=== PATIENT | male | born 1940 | race Caucasian/White ===

== ENCOUNTER → 2016-08-06 | Outpatient (CLI) | payer MEDICARE, OTHER ==
[~2016-08-06] MED LIST: /PANT40TA OR; /PRAV20TA OR; /SUCR1TA OR; ALLO300T OR; ASPI81TA3 OR; BENA40TA OR; COLA100C2 OR; CORE12.5 OR; FISH1000 OR; GLIP5TAB2 OR; INDO50CA2 OR; KLOR10TA OR; LASI80TA OR
[2016-08-06 10:28] LABS: ALBUMIN 3.2 GM/DL (3.2-5.2); ALBUMIN/GLOBULIN RATIO 0.91 (1.00-1.93); BILIRUBIN,TOTAL 0.5 MG/DL (0.2-1.0); CALCIUM LEVEL 8.7 MG/DL (8.8-10.2); CREATININE FOR GFR 1.63 MG/DL (0.70-1.30); GLOMERULAR FILTRATION RATE 44.1 (>42); POTASSIUM SERUM 3.8 MEQ/L (3.5-5.1); TOTAL PROTEIN 6.7 GM/DL (6.4-8.2)
== END ==
LOC: M LAB 09:13
PROVIDERS: ATTEND Nurse Practitioner Family
DX: E13.9 Other specified diabetes mellitus without complications (principal); I50.9 Heart failure, unspecified; E78.2 Mixed hyperlipidemia

== ENCOUNTER → 2016-11-04 | Outpatient (REF) | payer MEDICARE, OTHER ==
[2016-11-04 13:03] LABS: ALBUMIN 3.3 GM/DL (3.2-5.2); ALBUMIN/GLOBULIN RATIO 1.06 (1.00-1.93); BILIRUBIN,TOTAL 0.5 MG/DL (0.2-1.0); CALCIUM LEVEL 8.5 MG/DL (8.8-10.2); CREATININE FOR GFR 1.41 MG/DL (0.70-1.30); PERCENT SATURATION 18.6 % (19.7-37.4); POTASSIUM SERUM 3.9 MEQ/L (3.5-5.1); TOTAL PROTEIN 6.4 GM/DL (6.4-8.2)
[2016-11-04 13:04] LABS: BASO # 0.1 K/mm3 (0.0-0.2); BASO % 0.9 % (0.0-1.0); EOS # 0.2 K/mm3 (0.0-0.50); EOS % 3.3 % (0.0-3.0); LARGE UNSTAINED CELL # 0.1 K/mm3 (0.0-0.4); LARGE UNSTAINED CELL % 1.8 % (0.0-4.0); LYMPH # 1.4 K/mm3 (1.5-4.5); LYMPH % 19.1 % (24.0-44.0); MEAN CORPUSCULAR HEMOGLOBIN 28.8 pg (27.0-33.0); MEAN CORPUSCULAR HGB CONC 31.5 g/dl (32.0-36.5); MEAN CORPUSCULAR VOLUME 91.5 fl (80.0-96.0); MONO # 0.3 K/mm3 (0.0-0.8); NEUTROPHILS # 5.3 K/mm3 (1.8-7.7); NEUTROPHILS % 70.9 % (36.0-66.0); PLATELET COUNT, AUTOMATED 269 k/mm3 (150-450); RED CELL DISTRIBUTION WIDTH 17.6 % (11.5-14.5); WHITE BLOOD COUNT 7.5 K/mm3 (4.0-10.0)
== END ==
LOC: M SFHCPLAZ 09:16
PROVIDERS: ATTEND Nurse Practitioner Family
DX: Z00.00 Encounter for general adult medical examination without abnormal findings (principal); E13.9 Other specified diabetes mellitus without complications

== ENCOUNTER → 2016-11-09 | Outpatient (REF) | payer MEDICARE, OTHER | LOC: M SFHCPLAZ 10:44 | PROVIDERS: ATTEND Nurse Practitioner Family | DX: D64.9 Anemia, unspecified (principal); Z53.8 Procedure and treatment not carried out for other reasons ==

== ENCOUNTER → 2017-02-08 | Outpatient (CLI) | payer MEDICARE, OTHER ==
[2017-02-08 13:27] LABS: ALBUMIN 3.3 GM/DL (3.2-5.2); ALBUMIN/GLOBULIN RATIO 1.03 (1.00-1.93); BILIRUBIN,TOTAL 0.4 MG/DL (0.2-1.0); CALCIUM LEVEL 8.7 MG/DL (8.8-10.2); CREATININE FOR GFR 1.58 MG/DL (0.70-1.30); GLOMERULAR FILTRATION RATE 45.6 (>42); PERCENT SATURATION 14.4 % (19.7-37.4); POTASSIUM SERUM 3.9 MEQ/L (3.5-5.1); TOTAL PROTEIN 6.5 GM/DL (6.4-8.2)
[2017-02-08 13:41] LABS: BASO # 0.1 K/mm3 (0.0-0.2); BASO % 0.9 % (0.0-1.0); EOS # 0.2 K/mm3 (0.0-0.50); EOS % 2.3 % (0.0-3.0); LARGE UNSTAINED CELL # 0.1 K/mm3 (0.0-0.4); LARGE UNSTAINED CELL % 1.3 % (0.0-4.0); LYMPH # 1.7 K/mm3 (1.5-4.5); LYMPH % 19.1 % (24.0-44.0); MEAN CORPUSCULAR HEMOGLOBIN 29.8 pg (27.0-33.0); MEAN CORPUSCULAR VOLUME 90.1 fl (80.0-96.0); MONO # 0.4 K/mm3 (0.0-0.8); MONO % 4.2 % (0.0-5.0); NEUTROPHILS # 6.1 K/mm3 (1.8-7.7); NEUTROPHILS % 72.2 % (36.0-66.0); PLATELET COUNT, AUTOMATED 273 k/mm3 (150-450); RED CELL DISTRIBUTION WIDTH 17.8 % (11.5-14.5); WHITE BLOOD COUNT 8.5 K/mm3 (4.0-10.0)
== END ==
LOC: M WUC 08:40
PROVIDERS: ATTEND Nurse Practitioner Family
DX: D64.9 Anemia, unspecified (principal); I10 Essential (primary) hypertension; Z12.5 Encounter for screening for malignant neoplasm of prostate; E11.9 Type 2 diabetes mellitus without complications
CPT/HCPCS: 36415; 80053; 83036; 83550; 85025; G0103

== ENCOUNTER → 2017-05-09 | Outpatient (CLI) | payer MEDICARE, OTHER ==
[2017-05-09 13:11] LABS: BASO # 0.1 10^3/uL (0.0-0.2); BASO % 0.8 % (0.0-1.0); EOS # 0.2 10^3/uL (0.0-0.50); EOS % 1.9 % (0.0-3.0); IMMATURE GRANULOCYTE % 0.5 % (0-0); LYMPH # 1.7 10^3/uL (1.5-4.5); LYMPH % 19.3 % (24.0-44.0); MEAN CORPUSCULAR HEMOGLOBIN 29.6 pg (27.0-33.0); MEAN CORPUSCULAR HGB CONC 32.4 g/dl (32.0-36.5); MEAN CORPUSCULAR VOLUME 91.2 fl (80.0-96.0); MONO # 0.5 10^3/uL (0.0-0.8); MONO % 5.1 % (0.0-5.0); NEUTROPHILS # 6.4 10^3/uL (1.8-7.7); NEUTROPHILS % 72.4 % (36.0-66.0); PLATELET COUNT, AUTOMATED 286 10^3/uL (150-450); RED CELL DISTRIBUTION WIDTH 17.5 % (11.5-14.5); WHITE BLOOD COUNT 8.8 10^3/uL (4.0-10.0)
[2017-05-09 13:23] LABS: ALBUMIN 3.4 GM/DL (3.2-5.2); ALBUMIN/GLOBULIN RATIO 0.89 (1.00-1.93); BILIRUBIN,TOTAL 0.5 MG/DL (0.2-1.0); CALCIUM LEVEL 8.8 MG/DL (8.8-10.2); CREATININE FOR GFR 1.48 MG/DL (0.70-1.30); GLOMERULAR FILTRATION RATE 49.2 (>42); POTASSIUM SERUM 4.2 MEQ/L (3.5-5.1); TOTAL PROTEIN 7.2 GM/DL (6.4-8.2)
== END ==
LOC: M WUC 09:38
PROVIDERS: ATTEND Nurse Practitioner Family
DX: N18.3 Chronic kidney disease, stage 3 (moderate) (principal); E11.9 Type 2 diabetes mellitus without complications

== ENCOUNTER → 2017-07-08 | Outpatient (CLI) | payer MEDICARE, OTHER ==
[2017-07-08 14:03] LABS: ALBUMIN 3.4 GM/DL (3.2-5.2); BILIRUBIN,TOTAL 0.5 MG/DL (0.2-1.0); CALCIUM LEVEL 8.6 MG/DL (8.8-10.2); CREATININE FOR GFR 1.47 MG/DL (0.70-1.30); GLOMERULAR FILTRATION RATE 49.6 (>42); POTASSIUM SERUM 3.8 MEQ/L (3.5-5.1); TOTAL PROTEIN 6.8 GM/DL (6.4-8.2)
== END ==
LOC: M WUC 09:41
PROVIDERS: ATTEND Nurse Practitioner Family
DX: E78.2 Mixed hyperlipidemia (principal)

== ENCOUNTER → 2017-10-17 | Outpatient (REF) | payer MEDICARE, OTHER ==
[2017-10-17 13:57] LABS: ANION GAP 9 MEQ/L (8-16); BLOOD UREA NITROGEN 14 MG/DL (7-18); CALCIUM LEVEL 8.4 MG/DL (8.8-10.2); CARBON DIOXIDE LEVEL 30 MEQ/L (21-32); CHLORIDE LEVEL 101 MEQ/L (98-107); CREATININE FOR GFR 1.55 MG/DL (0.70-1.30); GLOMERULAR FILTRATION RATE 46.5 (>42); GLUCOSE, FASTING 127 MG/DL (70-100); SODIUM LEVEL 140 MEQ/L (136-145)
[2017-10-17 15:00] LABS: ESTIMATED AVERAGE GLUCOSE 148 MG/DL (60-110); HEMOGLOBIN A1c 6.8 %
[2017-10-17 16:38] LABS: MAU/CREAT RATIO 13.2 MCG/MG (0.0-30.0)
== END ==
LOC: M SFHCPLAZ 11:02
DX: E13.9 Other specified diabetes mellitus without complications (principal); I10 Essential (primary) hypertension
CPT/HCPCS: 83036

== ENCOUNTER → 2018-01-27 | Outpatient (CLI) | payer MEDICARE, OTHER ==
[2018-01-27 12:00] LABS: ESTIMATED AVERAGE GLUCOSE 140 MG/DL (60-110); HEMOGLOBIN A1c 6.5 %
[2018-01-27 12:07] LABS: ALBUMIN 3.3 GM/DL (3.2-5.2); ALBUMIN/GLOBULIN RATIO 0.92 (1.00-1.93); ALKALINE PHOSPHATASE 79 U/L (45-117); ALT/SGPT 19 U/L (12-78); ANION GAP 7 MEQ/L (8-16); AST/SGOT 20 U/L (7-37); BILIRUBIN,TOTAL 0.6 MG/DL (0.2-1.0); BLOOD UREA NITROGEN 15 MG/DL (7-18); CALCIUM LEVEL 8.2 MG/DL (8.8-10.2); CARBON DIOXIDE LEVEL 30 MEQ/L (21-32); CHLORIDE LEVEL 102 MEQ/L (98-107); CREATININE FOR GFR 1.61 MG/DL (0.70-1.30); GLOMERULAR FILTRATION RATE 44.5 (>42); GLUCOSE, FASTING 134 MG/DL (70-100); POTASSIUM SERUM 4.4 MEQ/L (3.5-5.1); SODIUM LEVEL 139 MEQ/L (136-145); TOTAL PROTEIN 6.9 GM/DL (6.4-8.2)
== END ==
LOC: M WUC 09:05
DX: I12.9 Hypertensive chronic kidney disease with stage 1 through stage 4 chronic kidney disease, or unspecified chronic kidney disease (principal); N18.3 Chronic kidney disease, stage 3 (moderate); E13.9 Other specified diabetes mellitus without complications
CPT/HCPCS: 80053

== ENCOUNTER → 2018-04-29 | Outpatient (CLI) | payer MEDICARE, OTHER ==
[2018-04-29 19:52] LABS: ALBUMIN 3.8 GM/DL (3.2-5.2); ALBUMIN/GLOBULIN RATIO 1.06 (1.00-1.93); ALKALINE PHOSPHATASE 95 U/L (45-117); ALT/SGPT 17 U/L (12-78); ANION GAP 9 MEQ/L (8-16); AST/SGOT 16 U/L (7-37); BILIRUBIN,TOTAL 0.8 MG/DL (0.2-1.0); BLOOD UREA NITROGEN 21 MG/DL (7-18); CALCIUM LEVEL 9.3 MG/DL (8.8-10.2); CARBON DIOXIDE LEVEL 32 MEQ/L (21-32); CHLORIDE LEVEL 98 MEQ/L (98-107); CHOLESTEROL LEVEL 232 MG/DL (<200); CHOLESTEROL RISK RATIO 5.043 (<5); CREATININE FOR GFR 1.93 MG/DL (0.70-1.30); GLOMERULAR FILTRATION RATE 36.1 (>42); GLUCOSE, FASTING 150 MG/DL (70-100); HDL CHOLESTEROL 46 MG/DL (>40); LDL CHOLESTEROL 131 MG/DL (<100); NON-HDL-C 186 MG/DL; POTASSIUM SERUM 4.4 MEQ/L (3.5-5.1); SODIUM LEVEL 139 MEQ/L (136-145); TOTAL PROTEIN 7.4 GM/DL (6.4-8.2); TRIGLYCERIDES LEVEL 275 MG/DL (<150)
[2018-04-29 20:56] LABS: ESTIMATED AVERAGE GLUCOSE 151 MG/DL (60-110); HEMOGLOBIN A1c 6.9 %
== END ==
LOC: M WUC 09:31
DX: I13.0 Hypertensive heart and chronic kidney disease with heart failure and stage 1 through stage 4 chronic kidney disease, or unspecified chronic kidney disease (principal); E13.9 Other specified diabetes mellitus without complications; E78.2 Mixed hyperlipidemia
CPT/HCPCS: 80053

== ENCOUNTER → 2018-05-04 | Outpatient (REF) | payer MEDICARE, OTHER ==
[2018-05-04 20:41] LABS: ANION GAP 6 MEQ/L (8-16); BLOOD UREA NITROGEN 16 MG/DL (7-18); CALCIUM LEVEL 8.4 MG/DL (8.8-10.2); CARBON DIOXIDE LEVEL 32 MEQ/L (21-32); CHLORIDE LEVEL 100 MEQ/L (98-107); CREATININE FOR GFR 1.92 MG/DL (0.70-1.30); GLOMERULAR FILTRATION RATE 36.3 (>42); GLUCOSE, FASTING 134 MG/DL (70-100); POTASSIUM SERUM 4.6 MEQ/L (3.5-5.1); SODIUM LEVEL 138 MEQ/L (136-145)
[2018-05-04 20:45] LABS: CREATININE, URINE 81.5 MG/DL; MALB URINE SIEMENS 11.6 MG/L
[2018-05-04 20:53] LABS: MAU/CREAT RATIO 14.2 MCG/MG (0.0-30.0)
== END ==
LOC: M SFHCADAM 11:31
DX: N18.3 Chronic kidney disease, stage 3 (moderate) (principal); Z23 Encounter for immunization
CPT/HCPCS: 82043

== ENCOUNTER → 2018-06-07 | Outpatient (CLI) | payer MEDICARE, OTHER | LOC: M RAD 10:21 | DX: N18.3 Chronic kidney disease, stage 3 (moderate) (principal); I12.9 Hypertensive chronic kidney disease with stage 1 through stage 4 chronic kidney disease, or unspecified chronic kidney disease; E11.22 Type 2 diabetes mellitus with diabetic chronic kidney disease; K80.00 Calculus of gallbladder with acute cholecystitis without obstruction; N17.9 Acute kidney failure, unspecified | CPT/HCPCS: 76775 ==

== ENCOUNTER → 2018-08-03 | Outpatient (CLI) | payer MEDICARE ==
[2018-08-03 12:11] LABS: ALBUMIN 3.3 GM/DL (3.2-5.2); BILIRUBIN,TOTAL 0.7 MG/DL (0.2-1.0); CALCIUM LEVEL 8.6 MG/DL (8.8-10.2); CREATININE FOR GFR 1.8 MG/DL (0.70-1.30); GLOMERULAR FILTRATION RATE 39.1 (>42); POTASSIUM SERUM 4.3 MEQ/L (3.5-5.1); TOTAL PROTEIN 6.8 GM/DL (6.4-8.2)
[2018-08-03 12:50] LABS: HEMOGLOBIN A1c 7.3 %
== END ==
LOC: M WUC 10:03
PROVIDERS: ATTEND Nurse Practitioner Family
DX: I13.0 Hypertensive heart and chronic kidney disease with heart failure and stage 1 through stage 4 chronic kidney disease, or unspecified chronic kidney disease (principal); N18.3 Chronic kidney disease, stage 3 (moderate); E78.2 Mixed hyperlipidemia; E13.9 Other specified diabetes mellitus without complications; I50.9 Heart failure, unspecified

== ENCOUNTER → 2018-11-01 | Outpatient (REF) | payer MEDICARE ==
[~2018-11-01] MED LIST changes: -/PANT40TA OR; -/PRAV20TA OR; -/SUCR1TA OR; +PRAV1TAB39 OR; +PROT1TAB2 OR; +SUCR1TAB56 OR
[2018-11-01 16:45] LABS: HEMOGLOBIN A1c 7.4 %
== END ==
LOC: M SFHCPLAZ 14:49
PROVIDERS: ATTEND Nurse Practitioner Family
DX: E13.9 Other specified diabetes mellitus without complications (principal)
CPT/HCPCS: 36415; 83036; G0463

== ENCOUNTER → 2019-02-01 | Outpatient (REF) | payer MEDICARE ==
[2019-02-01 12:49] LABS: ALBUMIN 3.5 GM/DL (3.2-5.2); BILIRUBIN,TOTAL 0.7 MG/DL (0.2-1.0); CALCIUM LEVEL 8.8 MG/DL (8.8-10.2); CREATININE FOR GFR 1.92 MG/DL (0.70-1.30); GLOMERULAR FILTRATION RATE 36.2 (>42); POTASSIUM SERUM 4.4 MEQ/L (3.5-5.1); TOTAL PROTEIN 7.1 GM/DL (6.4-8.2)
[2019-02-01 12:58] LABS: HEMOGLOBIN A1c 7.4 %
== END ==
LOC: M SFHCPLAZ 10:27
PROVIDERS: ATTEND Nurse Practitioner Family
DX: I13.0 Hypertensive heart and chronic kidney disease with heart failure and stage 1 through stage 4 chronic kidney disease, or unspecified chronic kidney disease (principal); E78.2 Mixed hyperlipidemia; E13.9 Other specified diabetes mellitus without complications
CPT/HCPCS: 36415; 80053; 83036; G0463

== ENCOUNTER → 2019-05-23 | Outpatient (REF) | payer MEDICARE ==
[2019-05-23 12:51] LABS: HEMATOCRIT 39.7 % (42.0-52.0); HEMOGLOBIN 12.6 g/dl (13.5-17.5); MEAN CORPUSCULAR HEMOGLOBIN 30.5 pg (27.0-33.0); MEAN CORPUSCULAR HGB CONC 31.7 g/dl (32.0-36.5); MEAN CORPUSCULAR VOLUME 96.1 fl (80.0-96.0); PLATELET COUNT, AUTOMATED 227 10^3/uL (150-450); RED BLOOD COUNT 4.13 10^6/uL (4.30-6.10); WHITE BLOOD COUNT 8.8 10^3/uL (4.0-10.0)
[2019-05-23 13:00] LABS: ALBUMIN 3.4 GM/DL (3.2-5.2); BILIRUBIN,TOTAL 0.4 MG/DL (0.2-1.0); CHOLESTEROL RISK RATIO 3.78 (<5); CREATININE FOR GFR 1.75 MG/DL (0.70-1.30); GLOMERULAR FILTRATION RATE 40.3 (>42); POTASSIUM SERUM 4.3 MEQ/L (3.5-5.1); TOTAL PROTEIN 6.8 GM/DL (6.4-8.2)
[2019-05-23 13:18] LABS: HEMOGLOBIN A1c 7.3 %
== END ==
LOC: M SFHCADAM 08:49
PROVIDERS: ATTEND Family Medicine
DX: I13.0 Hypertensive heart and chronic kidney disease with heart failure and stage 1 through stage 4 chronic kidney disease, or unspecified chronic kidney disease (principal); E78.2 Mixed hyperlipidemia; E13.9 Other specified diabetes mellitus without complications; N18.3 Chronic kidney disease, stage 3 (moderate); I65.22 Occlusion and stenosis of left carotid artery
CPT/HCPCS: 80053; 80061; 83036; 85027; 90682; G0008; G0463

== ENCOUNTER → 2019-07-03 | Outpatient (REF) | payer MEDICARE ==
[2019-07-03 18:10] LABS: HEMATOCRIT 38.2 % (42.0-52.0); HEMOGLOBIN 12.4 g/dl (13.5-17.5); MEAN CORPUSCULAR HEMOGLOBIN 30.8 pg (27.0-33.0); MEAN CORPUSCULAR HGB CONC 32.5 g/dl (32.0-36.5); PLATELET COUNT, AUTOMATED 234 10^3/uL (150-450); RED BLOOD COUNT 4.02 10^6/uL (4.30-6.10); WHITE BLOOD COUNT 8.3 10^3/uL (4.0-10.0)
[2019-07-03 18:32] LABS: INR 1.09; PROTHROMBIN TIME 13.8 SECONDS (11.8-14.0)
== END ==
LOC: M SFHCPLAZ 14:13
PROVIDERS: ATTEND Physician Assistant
DX: R58 Hemorrhage, not elsewhere classified (principal)

== ENCOUNTER → 2019-11-21 | Outpatient (REF) | payer MEDICARE ==
[2019-11-21 13:20] LABS: HEMATOCRIT 42.8 % (42.0-52.0); HEMOGLOBIN 13.8 g/dl (13.5-17.5); MEAN CORPUSCULAR HEMOGLOBIN 29.7 pg (27.0-33.0); MEAN CORPUSCULAR HGB CONC 32.2 g/dl (32.0-36.5); MEAN CORPUSCULAR VOLUME 92.2 fl (80.0-96.0); PLATELET COUNT, AUTOMATED 243 10^3/uL (150-450); RED BLOOD COUNT 4.64 10^6/uL (4.30-6.10); WHITE BLOOD COUNT 8.9 10^3/uL (4.0-10.0)
[2019-11-21 13:44] LABS: CALCIUM LEVEL 8.6 MG/DL (8.8-10.2); CREATININE FOR GFR 1.65 MG/DL (0.70-1.30); GLOMERULAR FILTRATION RATE 43.1 (>42); HEMOGLOBIN A1c 7.3 %; POTASSIUM SERUM 4.5 MEQ/L (3.5-5.1)
== END ==
LOC: M SFHCADAM 11:07
PROVIDERS: ATTEND Family Medicine
DX: E13.9 Other specified diabetes mellitus without complications (principal); K92.1 Melena
CPT/HCPCS: 80048; 83036; 85027; G0463

== ENCOUNTER → 2020-05-06 | Outpatient (REF) | payer MEDICARE ==
[2020-05-06 12:58] LABS: HEMOGLOBIN 13.4 g/dl (13.5-17.5); MEAN CORPUSCULAR HEMOGLOBIN 30.7 pg (27.0-33.0); MEAN CORPUSCULAR HGB CONC 32.7 g/dl (32.0-36.5); MEAN CORPUSCULAR VOLUME 93.8 fl (80.0-96.0); PLATELET COUNT, AUTOMATED 243 10^3/uL (150-450); RED BLOOD COUNT 4.37 10^6/uL (4.30-6.10); WHITE BLOOD COUNT 9.1 10^3/uL (4.0-10.0)
[2020-05-06 13:38] LABS: ALBUMIN 3.3 GM/DL (3.2-5.2); BILIRUBIN,TOTAL 0.8 MG/DL (0.2-1.0); CALCIUM LEVEL 8.9 MG/DL (8.8-10.2); CHOLESTEROL RISK RATIO 3.428 (<5); CREATININE FOR GFR 1.55 MG/DL (0.70-1.30); GLOMERULAR FILTRATION RATE 46.3 (>42); POTASSIUM SERUM 4.1 MEQ/L (3.5-5.1)
[2020-05-06 14:03] LABS: HEMOGLOBIN A1c 6.7 %
== END ==
LOC: M SFHCADAM 09:11
PROVIDERS: ATTEND Family Medicine
DX: E78.2 Mixed hyperlipidemia (principal); E13.9 Other specified diabetes mellitus without complications; Z23 Encounter for immunization
CPT/HCPCS: 80053; 80061; 83036; 85027; 90682; G0008; G0463

== ENCOUNTER 2020-09-01 09:08 | Day surgery (SDC) | payer MEDICARE ==
[~2020-09-01] VITALS: Ht 166.4 cm; Wt 93.6 kg
[2020-09-01] MEDS ORDERED: NS 500 ML IV ONE (10:00)
[2020-09-01 10:29] LABS: BASO # 0.1 10^3/uL (0.0-0.2); BASO % 0.6 % (0.0-1.0); EOS # 0.2 10^3/uL (0.0-0.5); EOS % 2.4 % (0.0-3.0); HEMATOCRIT 40.5 % (42.0-52.0); HEMOGLOBIN 13.2 g/dl (13.5-17.5); LYMPH # 1.5 10^3/uL (1.5-5.0); LYMPH % 16.5 % (24.0-44.0); MEAN CORPUSCULAR HGB CONC 32.6 g/dl (32.0-36.5); MONO # 0.6 10^3/uL (0.0-0.8); MONO % 6.8 % (0.0-5.0); NEUTROPHILS # 6.8 10^3/uL (1.5-8.5); NEUTROPHILS % 72.9 % (36.0-66.0); PLATELET COUNT, AUTOMATED 215 10^3/uL (150-450); RED BLOOD COUNT 4.55 10^6/uL (4.30-6.10); WHITE BLOOD COUNT 9.3 10^3/uL (4.0-10.0)
[2020-09-01 10:54] LABS: CALCIUM LEVEL 8.7 MG/DL (8.8-10.2); CREATININE FOR GFR 1.84 MG/DL (0.70-1.30); GLOMERULAR FILTRATION RATE 37.9 (>35); POTASSIUM SERUM 3.8 MEQ/L (3.5-5.1)
[2020-09-01] MEDS ORDERED: PRAV40TA2 PO (11:22)
[2020-09-01] MEDS ORDERED: ASPI-161 PO (11:22)
[2020-09-01] MEDS ORDERED: EZET10TA21 PO (11:22)
[2020-09-01] MEDS ORDERED: CALC1CAP31 PO (11:22)
[2020-09-01] MEDS ORDERED: PANT40TA29 PO (11:22)
[2020-09-01] MEDS ORDERED: DOCU100C16 PO (11:22)
[2020-09-01] MEDS ORDERED: OMEG10002 PO (11:22)
[2020-09-01] MEDS ORDERED: TAMS1CAP17 PO (11:22)
[2020-09-01] MEDS ORDERED: BENA5TA PO (11:22)
[2020-09-01] MEDS ORDERED: FERR1TAB8 PO (11:22)
[2020-09-01] MEDS ORDERED: D31000TA2 PO (11:22)
[2020-09-01] MEDS ORDERED: GLIP5TAB8 PO (11:22)
[2020-09-01] MEDS ORDERED: CARV6.25 PO (11:22)
[2020-09-01] MEDS ORDERED: FURO80TA2 PO ×2 (11:22)
[2020-09-01] MEDS ORDERED: POTA10TA17 PO (11:22)
[2020-09-01 11:26] LABS: RSV AMPLIFICATION NEGATIVE (NEGATIVE)
[2020-09-01] MEDS ORDERED: SUCCINYLCHOLINE 100 MG/5 ML SYRINGE (J0330) As Ordered ONE (12:55)
[2020-09-01] MEDS ORDERED: ROCURONIUM BROMIDE 50 MG/5 ML VIAL As Ordered ONE (12:55)
[2020-09-01] MEDS ORDERED: ONDANSETRON 4MG/2ML VIAL As Ordered ONE (12:55)
[2020-09-01] MEDS ORDERED: fentaNYL 100 MCG/2 ML INJECTION (J3010) As Ordered ONE (12:55)
[2020-09-01] MEDS ORDERED: propofoL 200 MG/20 ML VIAL As Ordered ONE (12:55)
[2020-09-01] MEDS ORDERED: METOCLOPRAMIDE INJ 10MG/2ML VIAL (J2765 PER 1) As Ordered ONE (12:55)
[2020-09-01] MEDS ORDERED: LIDOCAINE 2% INJ 100 MG/5 ML SYRINGE As Ordered ONE (12:55)
[2020-09-01] MEDS ORDERED: LIDOCAINE 2% 100MG/5ML SDV (FOR ANES.) As Ordered ONE (13:00)
--- NOTE | 2020-09-01 14:35 | ROOR ---
Patient Name: Jose R Ritchie Procedure Date: 09/01/2020 12:50 PM Date of : 1940 Age: 80 Room: Main OR Gender: Male Note Status: Finalized Procedure: Upper GI endoscopy Indications: Removal of foreign body in the esophagus Providers: Ajay Hickman MD Referring MD: Elliot Zuniga Md Requesting Provider: Medicines: Monitored Anesthesia Care Complications: No immediate complications. Procedure: Pre-Anesthesia Assessment: - Prior to the procedure, a History and Physical was performed, and patient medications and allergies were reviewed. The patient is competent. The risks and benefits of the procedure and the sedation options and risks were discussed with the patient. All questions were answered and informed consent was obtained. Patient identification and proposed procedure were verified by the physician, the nurse and the anesthesiologist in the procedure room. Mental Status Examination: alert and oriented. Airway Examination: normal oropharyngeal airway and neck mobility. Respiratory Examination: clear to auscultation. CV Examination: normal. Prophylactic Antibiotics: The patient does not require prophylactic antibiotics. Prior Anticoagulants: The patient has taken no previous anticoagulant or antiplatelet agents. ASA Grade Assessment: II - A patient with mild systemic disease. After reviewing the risks and benefits, the patient was deemed in satisfactory condition to undergo the procedure. The anesthesia plan was to use moderate sedation / analgesia (conscious sedation). Immediately prior to administration of medications, the patient was re-assessed for adequacy to receive sedatives. The heart rate, respiratory rate, oxygen saturations, blood pressure, adequacy of pulmonary ventilation, and response to care were monitored throughout the procedure. The physical status of the patient was re-assessed after the procedure. The Endoscope was introduced through the mouth, and advanced to the second part of duodenum. The upper GI endoscopy was accomplished without difficulty. The patient tolerated the procedure well. Findings: Diffuse, white plaques were found in the upper third of the esophagus and in the middle third of the esophagus. One benign-appearing, intrinsic moderate stenosis was found 20 to 22 cm from the incisors. This stenosis measured 1.5 cm (inner diameter) x 2 cm (in length). The stenosis was traversed. Biopsies were taken with a cold forceps for histology. Verification of patient identification for the specimen was done by the physician and nurse using the patient's name, date and medical record number. Estimated blood loss was minimal. A medium amount of food (residue) was found in the gastric fundus. The duodenal bulb and second portion of the duodenum were normal. Impression: - Esophageal plaques were found, consistent with candidiasis. - Benign-appearing esophageal stenosis. Biopsied. - A medium amount of food (residue) in the stomach. - Normal duodenal bulb and second portion of the duodenum. Recommendation: - Patient has a contact number available for emergencies. The signs and symptoms of potential delayed complications were discussed with the patient. Return to normal activities tomorrow. Written discharge instructions were provided to the patient. - High fiber diet. - Continue present medications. - Use sucralfate suspension 1 gram PO QID. - Proper use of inhaled medications. Gargle the throat with 8 ounce of water after each use of inhaler medication. - Await pathology results. - Telephone GI clinic for pathology results in 2 weeks. - Return to primary care physician. Procedure Code(s): --- Professional --- 90204, Esophagogastroduodenoscopy, flexible, transoral; with biopsy, single or multiple Diagnosis Code(s): --- Professional --- K22.9, Disease of esophagus, unspecified K22.2, Esophageal obstruction T18.108A, Unspecified foreign body in esophagus causing other injury, initial encounter CPT copyright 2019 [employer]. All rights reserved. The codes documented in this report are preliminary and upon housing liaison review may be revised to meet current compliance requirements. Ajay Hickman MD Ajay Hickman MD 09/01/2020 2:35:05 PM Electronically signed by Ajay Hickman MD Number of Addenda: 0 Note Initiated On: 09/01/2020 12:50 PM Estimated Blood Loss: Estimated blood loss was minimal.
[2020-09-01] MEDS ORDERED: LR 1,000 ML IV SCH (15:00)
[2020-09-01] MEDS ORDERED: ONDANSETRON 4MG/2ML VIAL IV PRN (15:00)
[2020-09-01 16:10] VITALS: BP 168/72
--- NOTE | 2020-09-02 08:48 | ECGEPIP ---
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
== END 2020-09-01 16:30 | disposition home or self-care (01) ==
LOC: M ED 09:08 → M SDC 09:09
PROVIDERS: ATTEND Internal Medicine Gastroenterology
DX: T18.120A Food in esophagus causing compression of trachea, initial encounter (principal); K22.2 Esophageal obstruction; K22.9 Disease of esophagus, unspecified; E11.9 Type 2 diabetes mellitus without complications; I10 Essential (primary) hypertension; E78.49 Other hyperlipidemia; Z79.82 Long term (current) use of aspirin; Z79.899 Other long term (current) drug therapy; Z88.1 Allergy status to other antibiotic agents
CPT/HCPCS: 43239; 80048; 85025; 86850; 86900; 86901; 87631; 88305; 88313; 93005; 96374; 99284; J0330; J2405; J2765; J3010

== ENCOUNTER → 2021-02-18 | Outpatient (REF) | payer MEDICARE ==
[~2021-02-18] MED LIST changes: +ASPI-161 PO; +BENA5TA PO; +CALC1CAP31 PO; +CARV6.25 PO; +D31000TA2 PO; +DOCU100C16 PO; +EZET10TA21 PO; +FERR1TAB8 PO; +FURO80TA2 PO; +GLIP5TAB8 PO; +OMEG10002 PO; +PANT40TA29 PO; +POTA10TA17 PO; +PRAV40TA2 PO; +TAMS1CAP17 PO
== END ==
LOC: M LAB REF 17:43
PROVIDERS: ATTEND Internal Medicine Nephrology
DX: N18.31 Chronic kidney disease, stage 3a (principal)

== ENCOUNTER 2021-03-05 11:51 | Emergency (ER) | payer MEDICARE ==
[~2021-03-05] VITALS: Ht 167.6 cm; Wt 93.2 kg
[2021-03-05 12:26] LABS: VENOUS BASE EXCESS 2.8 (-2.0-2.0); VENOUS HCO3 28.9 MEQ/L (23.0-27.0); VENOUS PARTIAL PRESSURE CO2 50.5 mmHg (38.0-50.0); VENOUS PH 7.376 UNITS (7.330-7.430); VENOUS STANDARD HCO3 26.2 MEQ/L; VENOUS TOTAL CO2 30.5 MEQ/L (24.0-28.0)
[2021-03-05 12:31] LABS: BASO # 0.1 10^3/uL (0.0-0.2); BASO % 0.9 % (0.0-1.0); EOS # 0.2 10^3/uL (0.0-0.5); EOS % 2.3 % (0.0-3.0); HEMATOCRIT 41.4 % (42.0-52.0); HEMOGLOBIN 13.7 g/dl (13.5-17.5); LYMPH # 1.5 10^3/uL (1.5-5.0); LYMPH % 18.2 % (24.0-44.0); MEAN CORPUSCULAR HEMOGLOBIN 29.1 pg (27.0-33.0); MEAN CORPUSCULAR HGB CONC 33.1 g/dl (32.0-36.5); MEAN CORPUSCULAR VOLUME 87.9 fl (80.0-96.0); MONO # 0.5 10^3/uL (0.0-0.8); MONO % 6.1 % (2.0-8.0); NEUTROPHILS # 5.9 10^3/uL (1.5-8.5); PLATELET COUNT, AUTOMATED 203 10^3/uL (150-450); RED BLOOD COUNT 4.71 10^6/uL (4.30-6.10); WHITE BLOOD COUNT 8.1 10^3/uL (4.0-10.0)
--- NOTE | 2021-03-05 12:45 | REP ---
INDICATION: DYSPNEA/COUGH. COMPARISON: 12/28/2012 TECHNIQUE: AP view FINDINGS: The lungs are clear. The heart is not enlarged. 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 There is no failure. No interval change since the previous study. IMPRESSION: No active process. No interval change since the previous study. <Electronically signed by Aleks Dukes > 03/05/21 [id number]
[2021-03-05 13:04] LABS: ALBUMIN 3.2 GM/DL (3.2-5.2); ALT/SGPT 32 U/L (12-78); BILIRUBIN,DIRECT 0.2 MG/DL (0.0-0.2); BILIRUBIN,TOTAL 0.7 MG/DL (0.2-1.0); BLOOD UREA NITROGEN 16 MG/DL (7-18); CALCIUM LEVEL 8.4 MG/DL (8.8-10.2); CARBON DIOXIDE LEVEL 29 MEQ/L (21-32); CHLORIDE LEVEL 105 MEQ/L (98-107); CK-MB VALUE MASS 2.8 NG/ML (<3.6); CPK CREATINE PHOSPHOKINASE 88 U/L (39-308); CREATININE FOR GFR 1.73 MG/DL (0.70-1.30); GLOMERULAR FILTRATION RATE 40.7 (>35); GLUCOSE, FASTING 152 MG/DL (70-100); MB/CK RELATIVE INDEX 3.18 (< OR =4); NT-PRO BNP 774 PG/ML (<450); POTASSIUM SERUM 4.1 MEQ/L (3.5-5.1); SODIUM LEVEL 140 MEQ/L (136-145); THYROXINE (T4) 8.2 UG/DL (4.5-12.0); TOTAL PROTEIN 6.6 GM/DL (6.4-8.2); TROPONIN I < 0.02 NG/ML (< 0.10)
[2021-03-05] MEDS ORDERED: AMLO1TAB24 PO (16:29)
[2021-03-05] MEDS ORDERED: BENA5TA PO (16:29)
[2021-03-05] MEDS ORDERED: amLODIPine 5 MG TAB PO ONE (16:50)
[2021-03-05 16:53] VITALS: BP 180/71
[2021-03-05 16:58] VITALS: BP 180/71
--- NOTE | 2021-03-05 21:00 | ECGEPIP ---
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
== END 2021-03-05 17:02 | disposition home or self-care (01) ==
LOC: M ED 11:51
DX: R06.02 Shortness of breath (principal); R42 Dizziness and giddiness; I25.10 Atherosclerotic heart disease of native coronary artery without angina pectoris; Z79.899 Other long term (current) drug therapy; Z79.82 Long term (current) use of aspirin

== ENCOUNTER → 2021-03-26 | Outpatient (CLI) | payer MEDICARE ==
[~2021-03-26] MED LIST changes: +AMLO1TAB24 PO
[2021-03-26 10:38] LABS: CALCIUM LEVEL 8.3 MG/DL (8.8-10.2); CREATININE FOR GFR 2.08 MG/DL (0.70-1.30); GLOMERULAR FILTRATION RATE 32.9 (>35); POTASSIUM SERUM 4.4 MEQ/L (3.5-5.1)
== END ==
LOC: M WUC 08:27
PROVIDERS: ATTEND Physician Assistant
DX: R06.02 Shortness of breath (principal)

== ENCOUNTER 2021-04-08 15:36 | Day surgery (SDC) | payer MEDICARE ==
[~2021-04-08] VITALS: Ht 165.1 cm; Wt 92.2 kg
[2021-04-08] MEDS ORDERED: propofoL 200 MG/20 ML VIAL As Ordered ONE (16:35)
[2021-04-08] MEDS ORDERED: LIDOCAINE 2% 100MG/5ML SDV (FOR ANES.) As Ordered ONE (16:35)
[2021-04-08] MEDS ORDERED: MIDAZOLAM INJ 2MG/2ML VIAL (J2250 PER 1MG) As Ordered ONE (16:35)
[2021-04-08] MEDS ORDERED: fentaNYL 100 MCG/2 ML INJECTION (J3010) As Ordered ONE (16:35)
[2021-04-08] MEDS ORDERED: FINA5TAB2 PO (16:40)
[2021-04-08] MEDS ORDERED: PROB500T8 PO (16:40)
[2021-04-08] MEDS ORDERED: LIDOCAINE 1% SDV 30ML VIAL As Ordered ONE (16:41)
[2021-04-08] MEDS ORDERED: ISOVUE-300 61% 50ML VIAL As Ordered ONE (16:41)
[2021-04-08] MEDS ORDERED: MUPIROCIN 2% OINT 22 GM TUBE As Ordered ONE (16:43)
[2021-04-08] MEDS ORDERED: GLYCOPYRROLATE INJ 0.2 MG/ML 2 ML VIAL As Ordered ONE (17:07)
[2021-04-08] MEDS: ceFAZolin SOD 1 GM in D5W MINI-BAG PLUS 50 ML IV SCH (17:09)
[2021-04-08] MEDS ORDERED: ePHEDrine SULFATE 25 MG/5 ML(5MG/ML) SYRINGE As Ordered ONE (17:25)
[2021-04-08] MEDS ORDERED: ATROPINE SULF 1MG/10ML SYRINGE (J0461) As Ordered ONE (18:01)
[2021-04-08] MEDS ORDERED: LR 1,000 ML IV SCH (19:45)
[2021-04-08] MEDS ORDERED: ONDANSETRON 4MG/2ML VIAL IV PRN (19:45)
[2021-04-08] MEDS ORDERED: fentaNYL 100 MCG/2 ML INJECTION (J3010) IV PRN (19:45)
--- NOTE | 2021-04-08 19:55 | REP ---
INDICATION: S/P PACEMAKER. COMPARISON: 03/05/2021 TECHNIQUE: Portable FINDINGS: The technique utilized in obtaining the radiograph has magnified the cardiac silhouette and accentuated the interstitial markings. Since the last examination a dual chamber bipolar pacemaker device has been placed. The leads are contiguous and appropriate. The cardiomediastinal silhouette is unchanged. The heart is not enlarged. The pleural angles are sharp the lung garcia are clear. The osseous structures are stable and intact. IMPRESSION: There is no acute cardiopulmonary disease. <Electronically signed by Malcolm To > 04/08/211951
[2021-04-08 20:00] VITALS: BP 167/75
[2021-04-08] MEDS ORDERED: DOCUSATE SODIUM 100MG CAPSULE PO PRN (20:05)
--- NOTE | 2021-04-08 20:58 | RO ---
OPERATIVE NOTE DATE OF OPERATION: 04/08/2021 PREOPERATIVE DIAGNOSIS: Complete heart block. POSTOPERATIVE DIAGNOSIS: Complete heart block. FINDINGS: Complete heart block. PROCEDURE PERFORMED: Implantation of a permanent dual-chamber pacemaker (Medtronic). SURGEON: Elliot Mon M.D. CASE FINISHER: None. ANESTHESIA: Lidocaine 1% local/monitored anesthetic care. SPECIMENS: None. ESTIMATED BLOOD LOSS: 10 mL. BLOOD PRODUCTS REPLACED: None. DRAINS: None. COMPLICATIONS: None. PROCEDURE DESCRIPTION: Patient was prepped and draped over the left pectoral region. 3M Ioban film was applied. Lidocaine 1% was used for local anesthetic. A micropuncture needle was used percutaneous with fluoroscopic guidance to get venous access to the extrathoracic portion of the left subclavian vein. This guidewire exchanged for one of the guidewires that came with the 7 Beninese sheath. Next incision approximately 2-1/2 to 3 inches in length was made with a PEAK PlasmaBlade through the skin 1 cm below the skin entry site of the guidewire and approximately parallel to the left clavicle. The PEAK PlasmaBlade was used to dissect through the fatty layer and the fibers of Jose's fascia. I then performed a pacemaker pocket in a caudal direction using blunt dissection to separate the Jose's fascia from the prepectoral fascia. Next, the guidewire was pulled through the skin into the incision site. A 7 Beninese sheath with introducer was placed over the 7 Beninese sheath and advanced into the vein. Next, the sheath was kept in place but the introducer was removed and the guidewire was kept in place. A second guidewire that came with the other 7 Beninese sheath was placed alongside the first guidewire within the 7 Beninese sheath. Next, both guidewires were left in place and the 7 Beninese sheath was removed. The introducer and sheath were then placed back together and placed over one of the guidewires and advanced into the vein. This was used for vein access for the right ventricular lead. The right ventricular lead was placed under fluoroscopic guidance into the right ventricle apex position where it was secured with a total of 8 turns. This position was found to be electrically and anatomically satisfactory. No diaphragmatic stimulation could be palpated on either side at 8 volts high output pacing. The 7 Beninese sheath was then broken apart and removed. Next, the other 7 Beninese sheath with introducer was placed over the other guidewire and advanced into the vein. This was used for vein access for the right atrial lead. The right atrial lead was placed under fluoroscopic guidance into the right atrial appendage position with the help of a preformed J-stylet. It was secured with a total of 10 turns. This position was found to be electrically and anatomically satisfactory. No diaphragmatic stimulation could be palpated on either side of the diaphragm with 8 volts high output pacing. The 7 Beninese sheath was broken apart and removed. The ventricular lead was then secured to the pectoral muscle using the supplied tie-down sleeve using two individual sutures consisting of 0 Ethibond and the atrial lead was secured to the pectoral muscle using the supplied tie-down sleeve to secure it to the pectoral muscle using one suture consisting of 0 Ethibond. Next the terminal pins of the atrial and ventricular were placed into their respective ports in the header of the new pacemaker pulse generator and each one was secured by tightening the set screws with the hex screwdriver. A pull test was applied to each terminal lead to demonstrate it was secure within the header. Next, another 0 Ethibond suture was placed to the pectoral muscle in the lateral aspect of the pocket to serve as the tie-down for the pacemaker pulse generator. I then took a medium sized TYRX antimicrobial envelope which was cut into four pieces and placed in the pacemaker pocket. Next, the excess lead material was coiled underneath the pacemaker pulse generator and placed along with the pacemaker pulse generator into the pacemaker pocket with excess lead material below and the pulse generator on top. The pulse generator was then secured to the pectoral muscle with the previously placed 0 Ethibond suture. The deep layer was closed using individual sutures consisting of 2-0 Vicryl. 3-0 Vicryl sutures were used to help approximate the more superficial layer. The incision was then closed using Prineo dressing. The patient received a left arm sling prior to leaving the operating room. A final fluoroscopic picture was obtained to demonstrate final position of the leads in the operating room after the incision was closed. The patient tolerated the procedure well without any immediate complications. The pacemaker pulse generator implanted was a [employer] Pic [place] XT DR MARISSA Marte. Model #W1DR01 with serial #[id number]. The right atrial lead was a Medtronic model 4076-52 cm with serial #[id number]. Testing in the operating room with the pulse analyzer in bipolar configuration of the right atrial lead showed a capture threshold of 0.4 volts with lead impedance of 513 ohms and P wave amplitude of 2.3 millivolts. Device based testing in the operating room for the right atrial lead showed a capture threshold of 0.5 volts at 0.4 milliseconds with lead impedance of 551 ohms and P wave amplitude of 1.9 millivolts. The right ventricular lead implanted was a Medtronic model 4076-58 cm with serial #[id number]. Testing with the pulse analyzer in bipolar configuration in the operating room showed a capture threshold of 0.4 volts and 0.4 milliseconds with lead impedance of 722 ohms and R wave amplitude of 8.3 millivolts. Final device based testing in the operating room for the right ventricular lead showed a capture threshold of 0.5 volts at 0.4 milliseconds with lead impedance of 460 ohms and no R waves obtained because the patient was pacemaker dependent.
[2021-04-08] MEDS ORDERED: VITAMIN D 1,000 INTERNATIONAL UNITS TABLET PO SCH (21:00)
[2021-04-08] MEDS ORDERED: EZETIMIBE 10MG TABLET (ZETIA) PO SCH (21:00)
[2021-04-08] MEDS ORDERED: PRAVASTATIN 20 MG TAB PO SCH (21:00)
[2021-04-08] MEDS ORDERED: TAMSULOSIN 0.4 MG CAP PO SCH (21:00)
[2021-04-08 21:04] VITALS: BP 167/75
[2021-04-08] MEDS: ASCORBIC ACID 250 MG TAB PO SCH (21:04)
[2021-04-08] MEDS: BENAZEPRIL 5 MG TAB PO SCH (21:04)
[2021-04-09] VITALS: BP 120/50
[2021-04-09 04:00] VITALS: BP 103/47
[2021-04-09 08:00] VITALS: BP 111/62
--- NOTE | 2021-04-09 08:43 | ECGEPIP ---
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
[2021-04-09] MEDS: ASCORBIC ACID 250 MG TAB PO SCH (08:58)
[2021-04-09] MEDS: BENAZEPRIL 5 MG TAB PO SCH (08:59)
[2021-04-09] MEDS ORDERED: amLODIPine 5 MG TAB PO SCH (09:00)
[2021-04-09] MEDS ORDERED: FINASTERIDE 5 MG TAB PO SCH (09:00)
[2021-04-09] MEDS ORDERED: POTASSIUM CHLORIDE 10MEQ SR TABLET PO SCH (09:00)
[2021-04-09] MEDS ORDERED: CALCITRIOL 0.25 MCG CAP (S0169) PO SCH (09:00)
[2021-04-09] MEDS ORDERED: PROBENECID 500 MG TAB PO SCH (09:00)
[2021-04-09] MEDS ORDERED: FUROSEMIDE 40 MG TAB PO SCH (09:00)
[2021-04-09] MEDS ORDERED: ASPIRIN 81MG ENTERIC TABLET PO SCH (09:00)
--- NOTE | 2021-04-09 09:18 | REP ---
INDICATION: pacemaker COMPARISON: 04/08/2021 as well as other prior exams. TECHNIQUE: PA/Lateral FINDINGS: Lungs: Clear, no infiltrate. Heart: Normal in size. Mediastinum: Mediastinal silhouette unremarkable. Pleural angles: Unremarkable.. Bones and soft tissues: There are mild degenerative changes of the spine. Multiple sternal wires and mediastinal clips are present as well as a prosthetic heart valve. Left pacemaker is noted, with atrial and ventricular leads appearing to be in good position. IMPRESSION: No acute pulmonary disease. <Electronically signed by Ramiro Kuhn > 04/09/21 0917
--- NOTE | 2021-04-09 10:48 | REP ---
INDICATION: PACEMAKER IN OR. COMPARISON: None. TECHNIQUE: Two C-arm views chest. FINDINGS: Left pacemaker is visualized with 2 leads grossly in good position. IMPRESSION: 6 minutes 7 seconds fluoroscopy time utilized. <Electronically signed by Ramiro Kuhn > 04/09/21 1041
[2021-04-09] MEDS ORDERED: glipiZIDE (GLUCOTROL) 5 MG TAB PO SCH (12:00)
[2021-04-10] MEDS ORDERED: FERROUS SULFATE 325MG TAB PO SCH (09:00)
== END 2021-04-09 11:35 | disposition home or self-care (01) ==
LOC: M SDC 15:36 → M PCU 20:17 → M SDC 04-09 11:35
PROVIDERS: ATTEND Internal Medicine Cardiovascular Disease
DX: I44.2 Atrioventricular block, complete (principal); I10 Essential (primary) hypertension; E11.9 Type 2 diabetes mellitus without complications; Z95.1 Presence of aortocoronary bypass graft; Z88.1 Allergy status to other antibiotic agents; Z79.02 Long term (current) use of antithrombotics/antiplatelets; Z79.84 Long term (current) use of oral hypoglycemic drugs
CPT/HCPCS: 33208; 71045; 71046; 76000; 93005; C1769; C1785; C1898; G0378; J0461; J0690; J2250; J3010; U0002

== ENCOUNTER → 2021-04-15 | Outpatient (CLI) | payer MEDICARE ==
[~2021-04-15] MED LIST changes: +FINA5TAB2 PO; +PROB500T8 PO
[2021-04-15 13:43] LABS: CALCIUM LEVEL 8.8 MG/DL (8.8-10.2); CREATININE FOR GFR 2.04 MG/DL (0.70-1.30); GLOMERULAR FILTRATION RATE 33.6 (>35); POTASSIUM SERUM 4.6 MEQ/L (3.5-5.1)
== END ==
LOC: M WUC 09:23
PROVIDERS: ATTEND Physician Assistant
DX: R06.02 Shortness of breath (principal)

== ENCOUNTER 2021-04-25 09:03 | Emergency (ER) | payer MEDICARE ==
[~2021-04-25] VITALS: Ht 165.1 cm; Wt 89.2 kg
[2021-04-25] MEDS ORDERED: GLUCAGON INJ 1MG VIAL IV STA (09:41)
[2021-04-25 12:51] LABS: RSV AMPLIFICATION NEGATIVE (NEGATIVE)
[2021-04-25 13:37] VITALS: BP 163/74
== END 2021-04-25 13:43 | disposition home or self-care (01) ==
LOC: M ED 09:03
DX: T18.128A Food in esophagus causing other injury, initial encounter (principal); R13.10 Dysphagia, unspecified; I25.10 Atherosclerotic heart disease of native coronary artery without angina pectoris; E11.9 Type 2 diabetes mellitus without complications; I12.9 Hypertensive chronic kidney disease with stage 1 through stage 4 chronic kidney disease, or unspecified chronic kidney disease; E78.5 Hyperlipidemia, unspecified; Z87.891 Personal history of nicotine dependence; Z95.5 Presence of coronary angioplasty implant and graft; Z79.899 Other long term (current) drug therapy; Z88.8 Allergy status to other drugs, medicaments and biological substances; Z79.82 Long term (current) use of aspirin
CPT/HCPCS: 87631; 96374; 99284; J1610

== ENCOUNTER → 2021-04-28 | Outpatient (CLI) | payer MEDICARE ==
[2021-04-28 12:32] LABS: CALCIUM LEVEL 8.8 MG/DL (8.8-10.2); CREATININE FOR GFR 1.84 MG/DL (0.70-1.30); GLOMERULAR FILTRATION RATE 37.9 (>35); POTASSIUM SERUM 4.1 MEQ/L (3.5-5.1)
== END ==
LOC: M WUC 08:18
PROVIDERS: ATTEND Physician Assistant
DX: R06.02 Shortness of breath (principal)

== ENCOUNTER → 2021-05-27 | Outpatient (REF) | payer MEDICARE ==
[2021-05-27 13:24] LABS: HEMATOCRIT 42.7 % (42.0-52.0); HEMOGLOBIN 14.1 g/dl (13.5-17.5); MEAN CORPUSCULAR HEMOGLOBIN 29.4 pg (27.0-33.0); PLATELET COUNT, AUTOMATED 258 10^3/uL (150-450); WHITE BLOOD COUNT 9.2 10^3/uL (4.0-10.0)
[2021-05-27 14:16] LABS: ALBUMIN 3.3 GM/DL (3.2-5.2); BILIRUBIN,TOTAL 0.5 MG/DL (0.2-1.0); CHOLESTEROL RISK RATIO 3.962 (<5); CREATININE FOR GFR 1.93 MG/DL (0.70-1.30); FOLATE 16.3 NG/ML (>5.4); FREE T4 0.83 NG/DL (0.76-1.46); GLOMERULAR FILTRATION RATE 35.8 (>35); PERCENT SATURATION 22.5 % (19.7-50.0); POTASSIUM SERUM 4.2 MEQ/L (3.5-5.1); THYROID STIMULATING HORMONE 2.86 uIU/ML (0.358-3.740); TOTAL PROTEIN 7.3 GM/DL (6.4-8.2); URIC ACID 7.9 MG/DL (3.5-7.2)
[2021-05-27 14:27] LABS: HEMOGLOBIN A1c 6.6 %
== END ==
LOC: M SFHCADAM 09:14
PROVIDERS: ATTEND Family Medicine
DX: E13.9 Other specified diabetes mellitus without complications (principal); N18.30 Chronic kidney disease, stage 3 unspecified; D50.9 Iron deficiency anemia, unspecified; E78.2 Mixed hyperlipidemia; M1A.9XX0 Chronic gout, unspecified, without tophus (tophi); Z23 Encounter for immunization
CPT/HCPCS: 80053; 80061; 82607; 82728; 82746; 83036; 83550; 84439; 84443; 84550; 85027; 90682; G0008; G0463

== ENCOUNTER → 2021-07-15 | Outpatient (REF) | payer MEDICARE ==
[~2021-07-15] MED LIST changes: +BENA1TAB23 PO; -BENA5TA PO; +VALA1TAB5 PO
[2021-07-22 17:09] LABS: Methylmalonic Acid 191 nmol/L (0-378)
== END ==
LOC: M SFHCADAM 09:59
PROVIDERS: ATTEND Family Medicine
DX: E53.8 Deficiency of other specified B group vitamins (principal); I11.9 Hypertensive heart disease without heart failure; E11.9 Type 2 diabetes mellitus without complications
CPT/HCPCS: 82607; 83921; 86256; G0463

== ENCOUNTER 2021-07-21 08:56 | Emergency (ER) | payer MEDICARE ==
[~2021-07-21] VITALS: Ht 165.1 cm; Wt 88.6 kg
[~2021-07-21 08:56] MED LIST changes: -BENA1TAB23 PO; +BENA5TA PO; -VALA1TAB5 PO
[2021-07-21] MEDS ORDERED: FLUORESCEIN OPHTH 1 MG STRIP OD ONE (09:40)
[2021-07-21] MEDS ORDERED: PROPARACAINE 0.5% OPHTH SOL 15ML OD ONE (09:55)
[2021-07-21] MEDS ORDERED: ACETAMINOPHEN 325 MG TAB PO ONE (10:05)
[2021-07-21] MEDS ORDERED: VALA1TAB5 PO ×3 (10:19→12:52)
[2021-07-21] MEDS ORDERED: NS 1,000 ML IV ONE (11:20)
[2021-07-21 11:39] LABS: BASO # 0.1 10^3/uL (0.0-0.2); BASO % 0.8 % (0.0-1.0); EOS # 0.1 10^3/uL (0.0-0.5); EOS % 0.8 % (0.0-3.0); HEMATOCRIT 40.1 % (42.0-52.0); HEMOGLOBIN 13.3 g/dl (13.5-17.5); LYMPH # 0.7 10^3/uL (1.5-5.0); LYMPH % 8.6 % (24.0-44.0); MEAN CORPUSCULAR HEMOGLOBIN 29.2 pg (27.0-33.0); MEAN CORPUSCULAR HGB CONC 33.2 g/dl (32.0-36.5); MEAN CORPUSCULAR VOLUME 88.1 fl (80.0-96.0); MONO # 0.9 10^3/uL (0.0-0.8); NEUTROPHILS # 6.6 10^3/uL (1.5-8.5); NEUTROPHILS % 78.3 % (36.0-66.0); PLATELET COUNT, AUTOMATED 269 10^3/uL (150-450); RED BLOOD COUNT 4.55 10^6/uL (4.30-6.10); WHITE BLOOD COUNT 8.4 10^3/uL (4.0-10.0)
[2021-07-21 12:12] LABS: ALBUMIN 3.3 GM/DL (3.2-5.2); BILIRUBIN,DIRECT 0.1 MG/DL (0.0-0.2); BILIRUBIN,TOTAL 0.4 MG/DL (0.2-1.0); TOTAL PROTEIN 7.2 GM/DL (6.4-8.2)
[2021-07-21 13:27] VITALS: BP 134/74
--- NOTE | 2021-07-21 13:35 | ECGEPIP ---
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
== END 2021-07-21 14:33 | disposition home or self-care (01) ==
LOC: M ED 08:56
DX: B02.9 Zoster without complications (principal); E78.5 Hyperlipidemia, unspecified; R94.31 Abnormal electrocardiogram [ECG] [EKG]; N18.9 Chronic kidney disease, unspecified; Z88.1 Allergy status to other antibiotic agents; Z95.0 Presence of cardiac pacemaker

== ENCOUNTER → 2021-07-23 | Outpatient (CLI) | payer MEDICARE ==
[~2021-07-23] MED LIST changes: +VALA1TAB5 PO
[2021-07-23 18:04] LABS: CREATININE FOR GFR 2.57 MG/DL (0.70-1.30); GLOMERULAR FILTRATION RATE 25.8 (>35)
== END ==
LOC: M LAB 17:16
PROVIDERS: ATTEND Physician Assistant
DX: B02.9 Zoster without complications (principal)

== ENCOUNTER → 2021-07-27 | Outpatient (CLI) | payer MEDICARE ==
[2021-07-27 12:44] LABS: CALCIUM LEVEL 8.7 MG/DL (8.8-10.2); CREATININE FOR GFR 1.93 MG/DL (0.70-1.30); GLOMERULAR FILTRATION RATE 35.8 (>35)
== END ==
LOC: M WUC 09:16
PROVIDERS: ATTEND Physician Assistant
DX: I50.32 Chronic diastolic (congestive) heart failure (principal); I48.3 Typical atrial flutter

== ENCOUNTER → 2021-08-28 | Outpatient (CLI) | payer MEDICARE ==
[~2021-08-28] MED LIST changes: +BENA1TAB23 PO; -BENA5TA PO
[2021-08-28 12:29] LABS: CALCIUM LEVEL 8.9 MG/DL (8.8-10.2); CREATININE FOR GFR 1.49 MG/DL (0.70-1.30); GLOMERULAR FILTRATION RATE 48.2 (>35); POTASSIUM SERUM 4.2 MEQ/L (3.5-5.1)
== END ==
LOC: M WUC 09:44
PROVIDERS: ATTEND Physician Assistant
DX: I50.32 Chronic diastolic (congestive) heart failure (principal)

== ENCOUNTER → 2021-09-28 | Outpatient (CLI) | payer MEDICARE ==
[~2021-09-28] MED LIST changes: -D31000TA2 PO; +VITA100093 PO
== END ==
LOC: M RAD 09:15
PROVIDERS: ATTEND Psychiatry & Neurology Neurology
DX: R41.1 Anterograde amnesia (principal); R25.1 Tremor, unspecified; R41.82 Altered mental status, unspecified

== ENCOUNTER → 2022-01-15 | Outpatient (CLI) | payer MEDICARE ==
[~2022-01-15] MED LIST changes: +SODI1POW59 PO; +SPIR50TA4 PO; +VELT1POW PO
[2022-01-15 13:35] LABS: HEMOGLOBIN 11.8 g/dl (13.5-17.5); MEAN CORPUSCULAR HEMOGLOBIN 29.6 pg (27.0-33.0); MEAN CORPUSCULAR HGB CONC 33.7 g/dl (32.0-36.5); MEAN CORPUSCULAR VOLUME 87.7 fl (80.0-96.0); PLATELET COUNT, AUTOMATED 301 10^3/uL (150-450); RED BLOOD COUNT 3.99 10^6/uL (4.30-6.10); WHITE BLOOD COUNT 10.1 10^3/uL (4.0-10.0)
[2022-01-15 14:18] LABS: ALBUMIN 3.5 GM/DL (3.2-5.2); BILIRUBIN,TOTAL 0.4 MG/DL (0.2-1.0); CALCIUM LEVEL 8.8 MG/DL (8.8-10.2); CHOLESTEROL RISK RATIO 2.66 (<5); CREATININE FOR GFR 2.4 MG/DL (0.70-1.30); FREE T4 1.1 NG/DL (0.76-1.46); GLOMERULAR FILTRATION RATE 27.8 (>35); PERCENT SATURATION 18.9 % (19.7-50.0); POTASSIUM SERUM 5.4 MEQ/L (3.5-5.1); THYROID STIMULATING HORMONE 2.95 uIU/ML (0.358-3.740); TOTAL PROTEIN 6.9 GM/DL (6.4-8.2)
[2022-01-15 14:19] LABS: HEMOGLOBIN A1c 6.5 %
== END ==
LOC: M WUC 09:57
PROVIDERS: ATTEND Family Medicine
DX: E53.8 Deficiency of other specified B group vitamins (principal); D50.9 Iron deficiency anemia, unspecified; E11.9 Type 2 diabetes mellitus without complications; E78.2 Mixed hyperlipidemia; F03.90 Unspecified dementia, unspecified severity, without behavioral disturbance, psychotic disturbance, mood disturbance, and anxiety; R25.1 Tremor, unspecified

== ENCOUNTER 2022-01-23 11:47 | Inpatient (IN) | payer MEDICARE ==
[~2022-01-23] VITALS: Ht 167.6 cm; Wt 87.0 kg
[~2022-01-23 11:47] MED LIST changes: -SODI1POW59 PO; -SPIR50TA4 PO; -VELT1POW PO
[2022-01-23 12:51] LABS: BASO # 0.1 10^3/uL (0.0-0.2); BASO % 0.7 % (0.0-1.0); EOS # 0.1 10^3/uL (0.0-0.5); EOS % 1.1 % (0.0-3.0); HEMATOCRIT 33.3 % (42.0-52.0); HEMOGLOBIN 11.5 g/dl (13.5-17.5); LYMPH # 0.7 10^3/uL (1.5-5.0); LYMPH % 8.5 % (24.0-44.0); MEAN CORPUSCULAR HEMOGLOBIN 30.6 pg (27.0-33.0); MEAN CORPUSCULAR HGB CONC 34.5 g/dl (32.0-36.5); MEAN CORPUSCULAR VOLUME 88.6 fl (80.0-96.0); MONO # 0.5 10^3/uL (0.0-0.8); MONO % 5.7 % (2.0-8.0); NEUTROPHILS # 6.8 10^3/uL (1.5-8.5); NEUTROPHILS % 83.4 % (36.0-66.0); PLATELET COUNT, AUTOMATED 285 10^3/uL (150-450); RED BLOOD COUNT 3.76 10^6/uL (4.30-6.10); WHITE BLOOD COUNT 8.2 10^3/uL (4.0-10.0)
[2022-01-23 13:24] LABS: CK-MB VALUE MASS 5.5 NG/ML (<3.6); MB/CK RELATIVE INDEX 6.4 (< OR =4)
[2022-01-23 13:25] LABS: RSV AMPLIFICATION NEGATIVE (NEGATIVE)
[2022-01-23 13:25] LABS: CALCIUM LEVEL 9.5 MG/DL (8.8-10.2); CREATININE FOR GFR 3.92 MG/DL (0.70-1.30); GLOMERULAR FILTRATION RATE 15.8 (>35)
[2022-01-23] MEDS ORDERED: PATIROMER SORBITEX CALCIUM 8.4 GM POWDER PACKET (VELTASSA) PO ONE (13:30)
[2022-01-23] MEDS ORDERED: NS 500 ML IV ONE (13:55)
[2022-01-23] MEDS ORDERED: SPIR50TA4 PO (13:56)
[2022-01-23] MEDS ORDERED: BENA1TAB23 PO (14:20)
[2022-01-23] MEDS ORDERED: HOME MED LIST COMPLETE! XX SCH (14:25)
[2022-01-23 15:38] LABS: INR 1.02; PROTHROMBIN TIME 13.8 SECONDS (12.7-14.5)
[2022-01-23] MEDS ORDERED: GLUCAGON INJ 1MG VIAL SC PRN (15:40)
[2022-01-23] MEDS ORDERED: DEXTROSE 50% 50 ML SYRINGE IV PRN (15:40)
[2022-01-23] MEDS ORDERED: GLUCOSE 4GM CHEW TABLET PO PRN (15:40)
[2022-01-23] MEDS ORDERED: DOCUSATE SODIUM 100MG CAPSULE PO PRN (15:40)
[2022-01-23 16:00] VITALS: BP 124/66
[2022-01-23 16:34] LABS: ALBUMIN 3.7 GM/DL (3.2-5.2); BILIRUBIN,TOTAL 0.6 MG/DL (0.2-1.0); TOTAL PROTEIN 6.8 GM/DL (6.4-8.2)
[2022-01-23] MEDS: PANTOPRAZOLE 40MG TAB (PROTONIX) PO SCH (16:46)
[2022-01-23] MEDS: NS 1,000 ML IV SCH (16:46)
[2022-01-23] MEDS: INSULIN LISPRO (NovoLOG) PER UNIT SC SCH ×2 (17:04→20:35)
[2022-01-23 18:33] LABS: SODIUM,RANDOM URINE 66 MEQ/L
[2022-01-23 19:07] LABS: ALBUMIN 3.6 GM/DL (3.2-5.2); BILIRUBIN,TOTAL 0.4 MG/DL (0.2-1.0); CALCIUM LEVEL 9.3 MG/DL (8.8-10.2); CREATININE FOR GFR 3.5 MG/DL (0.70-1.30); POTASSIUM SERUM 5.5 MEQ/L (3.5-5.1); TOTAL PROTEIN 7.1 GM/DL (6.4-8.2)
[2022-01-23 19:33] LABS: OSMOLALITY URINE 270 MOSM/KG (50-1400)
[2022-01-23] MEDS: TAMSULOSIN 0.4 MG CAP PO SCH (20:49)
[2022-01-23] MEDS: VITAMIN D 1,000 INTERNATIONAL UNITS TABLET PO SCH (20:49)
[2022-01-23] MEDS: EZETIMIBE 10MG TABLET (ZETIA) PO SCH (20:49)
[2022-01-23] MEDS: PRAVASTATIN 20 MG TAB PO SCH (20:50)
[2022-01-23] MEDS: HEPARIN SOD (PORCINE) 5000UNITS/ML 1ML VIAL/SYRINGE SQ SCH (20:50)
[2022-01-23 21:00] VITALS: BP 121/52
[2022-01-23] MEDS ORDERED: diphenhydrAMINE 25MG CAP PO ONE (22:00)
[2022-01-24] MEDS: NS 1,000 ML IV SCH ×4 (04:49→21:20)
[2022-01-24 05:25] VITALS: BP 116/54
[2022-01-24 07:21] LABS: HEMATOCRIT 33.5 % (42.0-52.0); HEMOGLOBIN 11.7 g/dl (13.5-17.5); MEAN CORPUSCULAR HEMOGLOBIN 30.5 pg (27.0-33.0); MEAN CORPUSCULAR HGB CONC 34.9 g/dl (32.0-36.5); MEAN CORPUSCULAR VOLUME 87.5 fl (80.0-96.0); PLATELET COUNT, AUTOMATED 285 10^3/uL (150-450); RED BLOOD COUNT 3.83 10^6/uL (4.30-6.10)
[2022-01-24 07:52] LABS: ALBUMIN 3.4 GM/DL (3.2-5.2); BILIRUBIN,TOTAL 0.7 MG/DL (0.2-1.0); CALCIUM LEVEL 9.3 MG/DL (8.8-10.2); CREATININE FOR GFR 3.16 MG/DL (0.70-1.30); GLOMERULAR FILTRATION RATE 20.2 (>35); POTASSIUM SERUM 5.7 MEQ/L (3.5-5.1); TOTAL PROTEIN 6.9 GM/DL (6.4-8.2)
[2022-01-24] MEDS: INSULIN LISPRO (NovoLOG) PER UNIT SC SCH ×4 (08:33→20:30)
[2022-01-24] MEDS: HEPARIN SOD (PORCINE) 5000UNITS/ML 1ML VIAL/SYRINGE SQ SCH ×2 (08:33→21:19)
[2022-01-24] MEDS: PROBENECID 500 MG TAB PO SCH (08:33)
[2022-01-24] MEDS: ASPIRIN 81MG ENTERIC TABLET PO SCH (08:34)
[2022-01-24] MEDS: FINASTERIDE 5MG TAB PO SCH (08:34)
[2022-01-24] MEDS: PANTOPRAZOLE 40MG TAB (PROTONIX) PO SCH (12:45)
[2022-01-24 18:19] VITALS: BP 124/58
[2022-01-24 19:46] LABS: CALCIUM LEVEL 8.5 MG/DL (8.8-10.2); CREATININE FOR GFR 2.65 MG/DL (0.70-1.30); GLOMERULAR FILTRATION RATE 24.8 (>35); POTASSIUM SERUM 5.5 MEQ/L (3.5-5.1)
[2022-01-24] MEDS: EZETIMIBE 10MG TABLET (ZETIA) PO SCH (21:19)
[2022-01-24] MEDS: VITAMIN D 1,000 INTERNATIONAL UNITS TABLET PO SCH (21:19)
[2022-01-24] MEDS: PRAVASTATIN 20 MG TAB PO SCH (21:19)
[2022-01-24] MEDS: TAMSULOSIN 0.4 MG CAP PO SCH (21:19)
[2022-01-24 22:00] VITALS: BP 121/57
[2022-01-25] MEDS ORDERED: POLYVINYL ALCOHOL OPHTH SOLN 15 ML(LIQUITEARS) OU PRN (02:00)
[2022-01-25] MEDS: NS 1,000 ML IV SCH (04:20)
[2022-01-25 05:51] LABS: HEMATOCRIT 30.4 % (42.0-52.0); HEMOGLOBIN 10.3 g/dl (13.5-17.5); MEAN CORPUSCULAR HEMOGLOBIN 30.1 pg (27.0-33.0); MEAN CORPUSCULAR HGB CONC 33.9 g/dl (32.0-36.5); MEAN CORPUSCULAR VOLUME 88.9 fl (80.0-96.0); PLATELET COUNT, AUTOMATED 245 10^3/uL (150-450); RED BLOOD COUNT 3.42 10^6/uL (4.30-6.10); WHITE BLOOD COUNT 7.7 10^3/uL (4.0-10.0)
[2022-01-25 06:00] VITALS: BP 120/57
[2022-01-25 06:21] LABS: ALBUMIN 2.8 GM/DL (3.2-5.2); BILIRUBIN,TOTAL 0.4 MG/DL (0.2-1.0); CALCIUM LEVEL 8.4 MG/DL (8.8-10.2); CREATININE FOR GFR 2.18 MG/DL (0.70-1.30); GLOMERULAR FILTRATION RATE 31.1 (>35); POTASSIUM SERUM 5.2 MEQ/L (3.5-5.1); TOTAL PROTEIN 6.1 GM/DL (6.4-8.2)
[2022-01-25] MEDS: INSULIN LISPRO (NovoLOG) PER UNIT SC SCH ×4 (07:30→21:00)
[2022-01-25] MEDS: PROBENECID 500 MG TAB PO SCH (08:37)
[2022-01-25] MEDS: HEPARIN SOD (PORCINE) 5000UNITS/ML 1ML VIAL/SYRINGE SQ SCH ×2 (08:37→21:21)
[2022-01-25] MEDS: NS 0.45% 1,000 ML IV SCH ×2 (08:37→18:01)
[2022-01-25] MEDS: ASPIRIN 81MG ENTERIC TABLET PO SCH (08:37)
[2022-01-25] MEDS: CALCITRIOL 0.25 MCG CAP (S0169) PO SCH (08:38)
[2022-01-25] MEDS: FINASTERIDE 5MG TAB PO SCH (08:38)
[2022-01-25] MEDS: FERROUS SULFATE 325MG TAB PO SCH (08:38)
[2022-01-25] MEDS: PANTOPRAZOLE 40MG TAB (PROTONIX) PO SCH (13:16)
[2022-01-25 14:00] VITALS: BP 116/60
[2022-01-25] MEDS: EZETIMIBE 10MG TABLET (ZETIA) PO SCH (21:21)
[2022-01-25] MEDS: VITAMIN D 1,000 INTERNATIONAL UNITS TABLET PO SCH (21:21)
[2022-01-25] MEDS: PRAVASTATIN 20 MG TAB PO SCH (21:21)
[2022-01-25] MEDS: TAMSULOSIN 0.4 MG CAP PO SCH (21:21)
[2022-01-26] MEDS: NS 0.45% 1,000 ML IV SCH ×3 (04:10→23:49)
[2022-01-26 06:00] VITALS: BP 108/54
[2022-01-26 06:32] LABS: HEMATOCRIT 29.2 % (42.0-52.0); MEAN CORPUSCULAR HEMOGLOBIN 30.2 pg (27.0-33.0); MEAN CORPUSCULAR HGB CONC 34.2 g/dl (32.0-36.5); MEAN CORPUSCULAR VOLUME 88.2 fl (80.0-96.0); PLATELET COUNT, AUTOMATED 239 10^3/uL (150-450); RED BLOOD COUNT 3.31 10^6/uL (4.30-6.10); WHITE BLOOD COUNT 7.3 10^3/uL (4.0-10.0)
[2022-01-26 06:59] LABS: ALBUMIN 2.7 GM/DL (3.2-5.2); BILIRUBIN,TOTAL 0.3 MG/DL (0.2-1.0); CALCIUM LEVEL 8.2 MG/DL (8.8-10.2); CREATININE FOR GFR 1.67 MG/DL (0.70-1.30); GLOMERULAR FILTRATION RATE 42.2 (>35); POTASSIUM SERUM 5.1 MEQ/L (3.5-5.1); TOTAL PROTEIN 5.6 GM/DL (6.4-8.2)
[2022-01-26] MEDS: PROBENECID 500 MG TAB PO SCH (09:06)
[2022-01-26] MEDS: CALCITRIOL 0.25 MCG CAP (S0169) PO SCH (09:06)
[2022-01-26] MEDS: FINASTERIDE 5MG TAB PO SCH (09:06)
[2022-01-26] MEDS: ASPIRIN 81MG ENTERIC TABLET PO SCH (09:06)
[2022-01-26] MEDS: FERROUS SULFATE 325MG TAB PO SCH (09:06)
[2022-01-26] MEDS: INSULIN LISPRO (NovoLOG) PER UNIT SC SCH ×4 (09:06→21:00)
[2022-01-26] MEDS: HEPARIN SOD (PORCINE) 5000UNITS/ML 1ML VIAL/SYRINGE SQ SCH ×2 (09:07→22:18)
[2022-01-26] MEDS: PANTOPRAZOLE 40MG TAB (PROTONIX) PO SCH (10:19)
[2022-01-26] MEDS: PATIROMER SORBITEX CALCIUM 8.4 GM POWDER PACKET (VELTASSA) PO SCH (13:23)
[2022-01-26 14:00] VITALS: BP 125/62
[2022-01-26 22:00] VITALS: BP 126/64
[2022-01-26] MEDS: EZETIMIBE 10MG TABLET (ZETIA) PO SCH (22:19)
[2022-01-26] MEDS: VITAMIN D 1,000 INTERNATIONAL UNITS TABLET PO SCH (22:19)
[2022-01-26] MEDS: TAMSULOSIN 0.4 MG CAP PO SCH (22:19)
[2022-01-26] MEDS: PRAVASTATIN 20 MG TAB PO SCH (22:19)
[2022-01-27 06:00] VITALS: BP 123/61
[2022-01-27 08:12] LABS: CALCIUM LEVEL 8.3 MG/DL (8.8-10.2); CREATININE FOR GFR 1.51 MG/DL (0.70-1.30); GLOMERULAR FILTRATION RATE 47.5 (>35); POTASSIUM SERUM 4.8 MEQ/L (3.5-5.1)
[2022-01-27] MEDS ORDERED: VELT1POW PO (08:38)
[2022-01-27] MEDS: PROBENECID 500 MG TAB PO SCH (09:12)
[2022-01-27] MEDS: ASPIRIN 81MG ENTERIC TABLET PO SCH (09:12)
[2022-01-27] MEDS: HEPARIN SOD (PORCINE) 5000UNITS/ML 1ML VIAL/SYRINGE SQ SCH (09:12)
[2022-01-27] MEDS: FERROUS SULFATE 325MG TAB PO SCH (09:12)
[2022-01-27] MEDS: CALCITRIOL 0.25 MCG CAP (S0169) PO SCH (09:12)
[2022-01-27] MEDS: PANTOPRAZOLE 40MG TAB (PROTONIX) PO SCH (09:12)
[2022-01-27] MEDS: FINASTERIDE 5MG TAB PO SCH (09:12)
[2022-01-27] MEDS: INSULIN LISPRO (NovoLOG) PER UNIT SC SCH ×2 (09:12→13:06)
[2022-01-27] MEDS ORDERED: SODI1POW59 PO (12:18)
[2022-01-27] MEDS: PATIROMER SORBITEX CALCIUM 8.4 GM POWDER PACKET (VELTASSA) PO SCH (13:06)
== END 2022-01-27 14:02 | disposition home health service (06) | DRG 683 ==
LOC: M ED 11:47 → M ED INP 14:09 → ENRESERV 14:55 → M MSPAV 15:45
PROVIDERS: ADMIT Internal Medicine; ATTEND General Practice
DX: N17.9 Acute kidney failure, unspecified (principal); I13.0 Hypertensive heart and chronic kidney disease with heart failure and stage 1 through stage 4 chronic kidney disease, or unspecified chronic kidney disease; I50.32 Chronic diastolic (congestive) heart failure; F05 Delirium due to known physiological condition; E87.1 Hypo-osmolality and hyponatremia; E78.5 Hyperlipidemia, unspecified; K27.9 Peptic ulcer, site unspecified, unspecified as acute or chronic, without hemorrhage or perforation; D50.9 Iron deficiency anemia, unspecified; N18.30 Chronic kidney disease, stage 3 unspecified; N40.0 Benign prostatic hyperplasia without lower urinary tract symptoms; I25.10 Atherosclerotic heart disease of native coronary artery without angina pectoris; E87.5 Hyperkalemia; Z95.1 Presence of aortocoronary bypass graft; G20 Parkinson's disease; E11.22 Type 2 diabetes mellitus with diabetic chronic kidney disease; K21.9 Gastro-esophageal reflux disease without esophagitis; Z95.2 Presence of prosthetic heart valve; E86.0 Dehydration; Z79.899 Other long term (current) drug therapy; Z79.82 Long term (current) use of aspirin; Z95.0 Presence of cardiac pacemaker; N25.81 Secondary hyperparathyroidism of renal origin; R33.9 Retention of urine, unspecified; Z88.8 Allergy status to other drugs, medicaments and biological substances

== ENCOUNTER → 2022-02-04 | Outpatient (CLI) | payer MEDICARE ==
[~2022-02-04] MED LIST changes: +SODI1POW59 PO; +SPIR50TA4 PO; +VELT1POW PO
[2022-02-04 17:25] LABS: BASO # 0.1 10^3/uL (0.0-0.2); BASO % 0.6 % (0.0-1.0); EOS # 0.4 10^3/uL (0.0-0.5); EOS % 3.6 % (0.0-3.0); HEMATOCRIT 29.9 % (42.0-52.0); HEMOGLOBIN 10.1 g/dl (13.5-17.5); LYMPH # 1.3 10^3/uL (1.5-5.0); LYMPH % 12.4 % (24.0-44.0); MEAN CORPUSCULAR HEMOGLOBIN 30.6 pg (27.0-33.0); MEAN CORPUSCULAR HGB CONC 33.8 g/dl (32.0-36.5); MEAN CORPUSCULAR VOLUME 90.6 fl (80.0-96.0); MONO # 0.8 10^3/uL (0.0-0.8); MONO % 7.4 % (2.0-8.0); NEUTROPHILS # 7.9 10^3/uL (1.5-8.5); NEUTROPHILS % 75.5 % (36.0-66.0); PLATELET COUNT, AUTOMATED 245 10^3/uL (150-450); WHITE BLOOD COUNT 10.5 10^3/uL (4.0-10.0)
[2022-02-04 17:54] LABS: CALCIUM LEVEL 7.8 MG/DL (8.8-10.2); CREATININE FOR GFR 1.37 MG/DL (0.70-1.30); GLOMERULAR FILTRATION RATE 53.1 (>35); POTASSIUM SERUM 3.8 MEQ/L (3.5-5.1)
== END ==
LOC: M LAB 16:37
PROVIDERS: ATTEND Physician Assistant
DX: N17.9 Acute kidney failure, unspecified (principal)

== ENCOUNTER → 2022-02-25 | Outpatient (CLI) | payer MEDICARE ==
[~2022-02-25] MED LIST changes: +POTA-150 PO; -POTA10TA17 PO
== END ==
LOC: M RAD 10:03
PROVIDERS: ATTEND Psychiatry & Neurology Neurology
DX: G31.9 Degenerative disease of nervous system, unspecified (principal); R41.82 Altered mental status, unspecified; R41.1 Anterograde amnesia; R25.1 Tremor, unspecified

== ENCOUNTER → 2022-03-15 | Outpatient (CLI) | payer MEDICARE ==
[2022-03-15 10:52] LABS: CALCIUM LEVEL 8.7 MG/DL (8.8-10.2); CREATININE FOR GFR 1.35 MG/DL (0.70-1.30); MAGNESIUM LEVEL 1.6 MG/DL (1.8-2.4); POTASSIUM SERUM 3.8 MEQ/L (3.5-5.1)
== END ==
LOC: M LAB 10:00
PROVIDERS: ATTEND Physician Assistant
DX: I48.3 Typical atrial flutter (principal); I50.32 Chronic diastolic (congestive) heart failure

== ENCOUNTER → 2022-06-14 | Outpatient (CLI) | payer MEDICARE ==
[2022-06-14 12:56] LABS: HEMATOCRIT 42.6 % (42.0-52.0); HEMOGLOBIN 13.1 g/dl (13.5-17.5); MEAN CORPUSCULAR HEMOGLOBIN 26.8 pg (27.0-33.0); MEAN CORPUSCULAR HGB CONC 30.8 g/dl (32.0-36.5); MEAN CORPUSCULAR VOLUME 87.3 fl (80.0-96.0); PLATELET COUNT, AUTOMATED 249 10^3/uL (150-450); RED BLOOD COUNT 4.88 10^6/uL (4.30-6.10); WHITE BLOOD COUNT 8.8 10^3/uL (4.0-10.0)
[2022-06-14 13:20] LABS: HEMOGLOBIN A1c 6.7 % (4.0-6.0)
[2022-06-14 13:33] LABS: ALBUMIN 3.5 G/DL (3.2-5.2); BILIRUBIN,TOTAL 0.3 MG/DL (0.3-1.2); CALCIUM LEVEL 8.3 MG/DL (8.3-10.6); CHOLESTEROL RISK RATIO 2.6 (<5); CREATININE FOR GFR 1.44 MG/DL (0.70-1.30); FREE T4 1.05 NG/DL (0.89-1.76); GLOMERULAR FILTRATION RATE 50.1 (>35); HDL CHOLESTEROL 62.3 MG/DL (>40); LDL CHOLESTEROL 60.1 MG/DL (<100); POTASSIUM SERUM 3.7 MMOL/L (3.5-5.1); THYROID STIMULATING HORMONE 3.604 uIU/ML (0.55-4.78); TOTAL PROTEIN 6.4 G/DL (5.7-8.2); URIC ACID 7.4 MG/DL (3.7-9.2)
== END ==
LOC: M WUC 09:52
PROVIDERS: ATTEND Family Medicine
DX: I11.0 Hypertensive heart disease with heart failure (principal); I50.9 Heart failure, unspecified; E78.2 Mixed hyperlipidemia; E13.9 Other specified diabetes mellitus without complications; M10.9 Gout, unspecified

== ENCOUNTER → 2022-06-28 | Outpatient (REF) | payer MEDICARE | LOC: M SFHCDERM 14:33 | PROVIDERS: ATTEND Nurse Practitioner Family | DX: D23.4 Other benign neoplasm of skin of scalp and neck (principal) ==

== ENCOUNTER → 2022-10-27 | Outpatient (REF) | payer MEDICARE ==
[2022-10-27 15:04] LABS: HEMATOCRIT 40.1 % (42.0-52.0); HEMOGLOBIN 12.7 g/dl (13.5-17.5); MEAN CORPUSCULAR HEMOGLOBIN 27.8 pg (27.0-33.0); MEAN CORPUSCULAR HGB CONC 31.7 g/dl (32.0-36.5); MEAN CORPUSCULAR VOLUME 87.7 fl (80.0-96.0); PLATELET COUNT, AUTOMATED 215 10^3/uL (150-450); RED BLOOD COUNT 4.57 10^6/uL (4.30-6.10); WHITE BLOOD COUNT 9.5 10^3/uL (4.0-10.0)
[2022-10-27 15:10] LABS: ALBUMIN 3.3 G/DL (3.2-5.2); BILIRUBIN,TOTAL 0.4 MG/DL (0.3-1.2); CALCIUM LEVEL 8.8 MG/DL (8.3-10.6); CHOLESTEROL RISK RATIO 2.21 (<5); CREATININE FOR GFR 1.61 MG/DL (0.70-1.30); FREE T4 0.93 NG/DL (0.89-1.76); HDL CHOLESTEROL 51.5 MG/DL (>40); LDL CHOLESTEROL 42.5 MG/DL (<100); NON-HDL-C 62.5 MG/DL; THYROID STIMULATING HORMONE 3.396 uIU/ML (0.55-4.78); TOTAL PROTEIN 6.4 G/DL (5.7-8.2)
[2022-10-27 15:12] LABS: URIC ACID 7.4 MG/DL (3.7-9.2)
[2022-10-27 18:44] LABS: HEMOGLOBIN A1c 7.1 % (4.0-6.0)
== END ==
LOC: M SFHCADAM 10:25
PROVIDERS: ATTEND Family Medicine
DX: E13.9 Other specified diabetes mellitus without complications (principal); E78.2 Mixed hyperlipidemia; F01.50 Vascular dementia, unspecified severity, without behavioral disturbance, psychotic disturbance, mood disturbance, and anxiety; M10.9 Gout, unspecified

== ENCOUNTER 2022-12-18 10:14 | Emergency (ER) | payer MEDICARE ==
[~2022-12-18] VITALS: Ht 167.6 cm; Wt 88.1 kg
[2022-12-18] MEDS ORDERED: GLUCAGON INJ 1MG VIAL IV STA (10:43)
[2022-12-18 11:22] LABS: BASO # 0.1 10^3/uL (0.0-0.2); BASO % 0.9 % (0.0-1.0); EOS # 0.1 10^3/uL (0.0-0.5); EOS % 1.7 % (0.0-3.0); HEMATOCRIT 43.5 % (42.0-52.0); HEMOGLOBIN 13.6 g/dl (13.5-17.5); LYMPH # 1.4 10^3/uL (1.5-5.0); LYMPH % 16.8 % (24.0-44.0); MEAN CORPUSCULAR HEMOGLOBIN 27.5 pg (27.0-33.0); MEAN CORPUSCULAR HGB CONC 31.3 g/dl (32.0-36.5); MEAN CORPUSCULAR VOLUME 88.1 fl (80.0-96.0); MONO # 0.7 10^3/uL (0.0-0.8); MONO % 8.4 % (2.0-8.0); NEUTROPHILS # 5.9 10^3/uL (1.5-8.5); NEUTROPHILS % 71.8 % (36.0-66.0); PLATELET COUNT, AUTOMATED 228 10^3/uL (150-450); RED BLOOD COUNT 4.94 10^6/uL (4.30-6.10); WHITE BLOOD COUNT 8.1 10^3/uL (4.0-10.0)
[2022-12-18] MEDS ORDERED: FURO80TA2 PO (11:25)
[2022-12-18 11:33] LABS: INR 1.06
[2022-12-18 11:41] LABS: ALBUMIN 3.9 G/DL (3.2-5.2); BILIRUBIN,TOTAL 1.1 MG/DL (0.3-1.2); CALCIUM LEVEL 9.2 MG/DL (8.3-10.6); CREATININE FOR GFR 1.77 MG/DL (0.70-1.30); GLOMERULAR FILTRATION RATE 39.4 (>35); TOTAL PROTEIN 7.2 G/DL (5.7-8.2)
[2022-12-18] MEDS ORDERED: ATOR80TA59 PO (13:43)
[2022-12-18] MEDS ORDERED: B-12100021 PO (13:43)
[2022-12-18] MEDS ORDERED: TUMS750C5 PO (13:43)
[2022-12-18] MEDS ORDERED: ASCO250T20 PO (13:43)
[2022-12-18] MEDS ORDERED: HOME MED LIST COMPLETE! XX SCH (13:45)
[2022-12-18] MEDS ORDERED: oxyCODONE 5MG TAB PO PRN (13:50)
[2022-12-18] MEDS ORDERED: MEPERIDINE 25 MG/ML 1ML VIAL IV PRN (13:50)
[2022-12-18] MEDS ORDERED: ONDANSETRON 4MG 2ML VIAL IV PRN (13:50)
[2022-12-18] MEDS ORDERED: HYDROMORPHONE HCL 0.5 MG/ 0.5 ML SYRINGE IV PRN (13:50)
[2022-12-18 13:58] LABS: RSV AMPLIFICATION NEGATIVE (NEGATIVE)
[2022-12-18 15:25] VITALS: BP 167/83; TEMP 98; O2SAT 98
== END 2022-12-18 16:01 | disposition home or self-care (01) ==
LOC: M ED 10:14 → M SDC 10:14
DX: T18.128A Food in esophagus causing other injury, initial encounter (principal); I25.10 Atherosclerotic heart disease of native coronary artery without angina pectoris; I25.2 Old myocardial infarction; E11.9 Type 2 diabetes mellitus without complications; I10 Essential (primary) hypertension; Z95.0 Presence of cardiac pacemaker; F03.90 Unspecified dementia, unspecified severity, without behavioral disturbance, psychotic disturbance, mood disturbance, and anxiety; N18.9 Chronic kidney disease, unspecified; Z87.19 Personal history of other diseases of the digestive system; Z79.82 Long term (current) use of aspirin; Z79.84 Long term (current) use of oral hypoglycemic drugs; Z79.899 Other long term (current) drug therapy; Z88.1 Allergy status to other antibiotic agents
CPT/HCPCS: 71045; 80053; 85025; 85610; 87631; 93005; 96374; 99284; J1610

== ENCOUNTER → 2023-03-14 | Outpatient (CLI) | payer MEDICARE ==
[~2023-03-14] MED LIST changes: +ASCO250T20 PO; +ATOR80TA59 PO; +B-12100021 PO; +TUMS750C5 PO
== END ==
LOC: M RAD 12:36
PROVIDERS: ATTEND Physician Assistant
DX: I65.23 Occlusion and stenosis of bilateral carotid arteries (principal)

== ENCOUNTER → 2023-06-20 | Outpatient (CLI) | payer MEDICARE ==
[~2023-06-20] MED LIST changes: +GLIP5TAB17 PO; -GLIP5TAB8 PO
[2023-06-20 13:27] LABS: HEMATOCRIT 42.6 % (42.0-52.0); MEAN CORPUSCULAR HEMOGLOBIN 28.9 pg (27.0-33.0); MEAN CORPUSCULAR HGB CONC 32.9 g/dl (32.0-36.5); MEAN CORPUSCULAR VOLUME 87.8 fl (80.0-96.0); PLATELET COUNT, AUTOMATED 235 10^3/uL (150-450); RED BLOOD COUNT 4.85 10^6/uL (4.30-6.10); WHITE BLOOD COUNT 9.1 10^3/uL (4.0-10.0)
[2023-06-20 13:36] LABS: HEMOGLOBIN A1c 7.3 % (4.0-6.0)
[2023-06-20 13:59] LABS: ALBUMIN 3.6 G/DL (3.2-5.2); BILIRUBIN,TOTAL 0.7 MG/DL (0.3-1.2); CALCIUM LEVEL 8.7 MG/DL (8.3-10.6); CHOLESTEROL RISK RATIO 2.53 (<5); CREATININE FOR GFR 1.42 MG/DL (0.70-1.30); GLOMERULAR FILTRATION RATE 50.8 (>35); HDL CHOLESTEROL 56.8 MG/DL (>40); LDL CHOLESTEROL 62.2 MG/DL (<100); NON-HDL-C 87.2 MG/DL; POTASSIUM SERUM 4.1 MMOL/L (3.5-5.1)
== END ==
LOC: M LAB 11:36
PROVIDERS: ATTEND Family Medicine
DX: I11.9 Hypertensive heart disease without heart failure (principal); E78.2 Mixed hyperlipidemia; F01.50 Vascular dementia, unspecified severity, without behavioral disturbance, psychotic disturbance, mood disturbance, and anxiety; E13.9 Other specified diabetes mellitus without complications

== ENCOUNTER → 2023-11-11 | Outpatient (REF) | payer MEDICARE ==
[~2023-11-11] MED LIST changes: -ASPI-161 PO; +ASPI-615 PO
[2023-11-11 13:38] LABS: CALCIUM LEVEL 9.2 MG/DL (8.3-10.6); CREATININE FOR GFR 1.55 MG/DL (0.70-1.30); GLOMERULAR FILTRATION RATE 45.8 (>35); POTASSIUM SERUM 3.6 MMOL/L (3.5-5.1)
[2023-11-11 14:54] LABS: HEMOGLOBIN A1c 7.3 % (4.0-6.0)
== END ==
LOC: M SFHCADAM 09:54
PROVIDERS: ATTEND Family Medicine
DX: E11.9 Type 2 diabetes mellitus without complications (principal)

== ENCOUNTER → 2024-05-17 | Outpatient (REF) | payer MEDICARE ==
[2024-05-17 17:29] LABS: HEMATOCRIT 38.6 % (42.0-52.0); HEMOGLOBIN 12.5 g/dl (13.5-17.5); MEAN CORPUSCULAR HEMOGLOBIN 28.2 pg (27.0-33.0); MEAN CORPUSCULAR HGB CONC 32.4 g/dl (32.0-36.5); MEAN CORPUSCULAR VOLUME 87.1 fl (80.0-96.0); PLATELET COUNT, AUTOMATED 222 10^3/uL (150-450); RED BLOOD COUNT 4.43 10^6/uL (4.30-6.10); WHITE BLOOD COUNT 9.6 10^3/uL (4.0-10.0)
[2024-05-17 17:49] LABS: HEMOGLOBIN A1c 7.2 % (4.0-6.0)
[2024-05-17 18:01] LABS: MALB URINE SIEMENS < 3.0 MG/L; MAU/CREAT RATIO 8.5 MCG/MG (0.0-30.0); URIC ACID 7.1 MG/DL (3.7-9.2)
[2024-05-17 18:03] LABS: ALBUMIN 3.3 G/DL (3.2-5.2); BILIRUBIN,TOTAL 0.6 MG/DL (0.3-1.2); CALCIUM LEVEL 9.3 MG/DL (8.3-10.6); CHOLESTEROL RISK RATIO 2.59 (<5); CREATININE FOR GFR 1.41 MG/DL (0.70-1.30); GLOMERULAR FILTRATION RATE 51.1 (>35); HDL CHOLESTEROL 44.4 MG/DL (>40); LDL CHOLESTEROL 49.2 MG/DL (<100); NON-HDL-C 70.6 MG/DL; POTASSIUM SERUM 3.9 MMOL/L (3.5-5.1); TOTAL PROTEIN 6.8 G/DL (5.7-8.2)
[2024-05-17 18:04] LABS: FREE T4 1.12 NG/DL (0.89-1.76)
[2024-05-17 18:05] LABS: THYROID STIMULATING HORMONE 3.268 uIU/ML (0.55-4.78)
== END ==
LOC: M SFHCADAM 11:20
PROVIDERS: ATTEND Family Medicine
DX: F01.50 Vascular dementia, unspecified severity, without behavioral disturbance, psychotic disturbance, mood disturbance, and anxiety (principal); E78.2 Mixed hyperlipidemia; M10.9 Gout, unspecified; E13.9 Other specified diabetes mellitus without complications

== ENCOUNTER 2024-06-04 12:19 | Emergency (ER) | payer MEDICARE ==
[~2024-06-04] VITALS: Ht 180.3 cm; Wt 86.6 kg
[2024-06-04] MEDS: EPINEPHrine 1MG/10ML SYRINGE 1.5IN IV STA (12:23)
[2024-06-04] MEDS: AMIODARONE 150MG/3ML VIAL IVP STA (12:34)
[2024-06-04] MEDS: NOREPINEPHRINE 4MG IN D5 250ML 4 MG in IV 1 EA IV SCH (12:43)
[2024-06-04] MEDS: NS 1,000 ML IV ONE (12:44)
[2024-06-04] MEDS ORDERED: DOBUTamine 500 MG/250 ML BAG IN D5W (2,000 MCG/ML) As Ordered ONE (12:49)
[2024-06-04] MEDS: DOBUTamine HCL 500,000 MCG in IV 1 EA IV SCH (12:52)
[2024-06-04 13:15] LABS: BASO # 0.1 10^3/uL (0.0-0.2); BASO % 0.6 % (0.0-1.0); EOS # 0.2 10^3/uL (0.0-0.5); EOS % 1.2 % (0.0-3.0); HEMATOCRIT 43.3 % (42.0-52.0); HEMOGLOBIN 13.3 g/dl (13.5-17.5); LYMPH # 6.5 10^3/uL (1.5-5.0); LYMPH % 41.2 % (24.0-44.0); MEAN CORPUSCULAR HEMOGLOBIN 28.7 pg (27.0-33.0); MEAN CORPUSCULAR HGB CONC 30.7 g/dl (32.0-36.5); MEAN CORPUSCULAR VOLUME 93.5 fl (80.0-96.0); MONO # 0.8 10^3/uL (0.0-0.8); MONO % 4.8 % (2.0-8.0); NEUTROPHILS # 7.5 10^3/uL (1.5-8.5); NEUTROPHILS % 47.9 % (36.0-66.0); PLATELET COUNT, AUTOMATED 234 10^3/uL (150-450); RED BLOOD COUNT 4.63 10^6/uL (4.30-6.10); WHITE BLOOD COUNT 15.7 10^3/uL (4.0-10.0)
[2024-06-04 13:30] LABS: INR 1.44; PARTIAL THROMBOPLASTIN TIME 31.7 SECONDS (24.8-34.2); PROTHROMBIN TIME 17.8 SECONDS (12.5-14.5)
[2024-06-04] MEDS ORDERED: PROPOFOL 1,000 MG/100 ML VIAL As Ordered ONE (13:30)
[2024-06-04] MEDS: propofoL 1,000 MG in IV 1 EA IV SCH (13:30)
[2024-06-04 13:39] LABS: ALBUMIN 2.8 G/DL (3.2-5.2); BILIRUBIN,DIRECT 0.3 MG/DL (<0.4); BILIRUBIN,TOTAL 0.7 MG/DL (0.3-1.2); CREATININE FOR GFR 1.67 MG/DL (0.70-1.30); MAGNESIUM LEVEL 2.8 MG/DL (1.8-2.4); PHOSPHORUS LEVEL 5.8 MG/DL (2.4-5.1); TOTAL PROTEIN 6.6 G/DL (5.7-8.2)
[2024-06-04 13:46] LABS: MB/CK RELATIVE INDEX 2.91 (< OR =4)
[2024-06-04 15:00] LABS: ABG BASE EXCESS -6.7 (-2.0-2.0); ABG HCO3 18.2 MMOL/L (22.0-26.0); ABG PARTIAL PRESSURE CO2 34.3 mmHg (35.0-45.0); ABG PARTIAL PRESSURE O2 91.4 mmHg (75.0-100.0); ABG TOTAL CO2 19.2 MMOL/L (23.0-31.0); ABG pH (ARTERIAL) 7.342 UNITS (7.350-7.450)
[2024-06-04 16:15] VITALS: BP 73/47; O2SAT 96
== END 2024-06-04 16:23 | disposition short-term general hospital (02) ==
LOC: EDBD 12:19 → M ED 12:19
DX: I46.9 Cardiac arrest, cause unspecified (principal); I10 Essential (primary) hypertension; E78.5 Hyperlipidemia, unspecified; K27.9 Peptic ulcer, site unspecified, unspecified as acute or chronic, without hemorrhage or perforation; N18.30 Chronic kidney disease, stage 3 unspecified; N40.0 Benign prostatic hyperplasia without lower urinary tract symptoms; E11.9 Type 2 diabetes mellitus without complications; D50.9 Iron deficiency anemia, unspecified; Z95.5 Presence of coronary angioplasty implant and graft; Z86.79 Personal history of other diseases of the circulatory system; Z88.1 Allergy status to other antibiotic agents; Z79.82 Long term (current) use of aspirin; Z79.02 Long term (current) use of antithrombotics/antiplatelets; Z79.899 Other long term (current) drug therapy
CPT/HCPCS: 36415; 36556; 36600; 51702; 70450; 71045; 80047; 80048; 80076; 81001; 82550; 82553; 82803; 83605; 83735; 84100; 84484; 85025; 85610; 85730; 87040; 87077; 87154; 87186; 92950; 93005; 93041; 94760; 96365; 96366; 96367; 96375; 99291; 99292; J0171; J0282; J1250